=== PATIENT | male | born 1955 | race African-American/Black ===

== ENCOUNTER 2021-12-11 22:50 | Inpatient (IN) | payer MEDICARE, OTHER ==
[~2021-12-11] VITALS: Ht 175.3 cm; Wt 86.2 kg
--- NOTE | 2021-12-11 23:01 | NUR ---
RT CALLED FOR BREATHING TX
--- NOTE | 2021-12-11 23:02 | NUR ---
[id number] FROM HOME FOR MED REFILL FOR BREATHING NEBULIZER. PT A/OX4. TOLERATING R/A AT 98% WITH SOB. AMBULATORY WITH STEADY GAIT WITH WALKER. CONNECTED PT TO POX AND MONITOR. Addendum: 12/11/21 at 2330 by CYNDY [email or web address] FROM HOME FOR MED REFILL FOR BREATHING NEBULIZER. PT A/OX4. TOLERATING R/A AT 90% WITH SOB. AMBULATORY WITH STEADY GAIT WITH WALKER. CONNECTED PT TO POX AND MONITOR.
[2021-12-11] MEDS ORDERED: hydrALAZINE HCL IV 20 MG VIAL ONE (23:07)
[2021-12-11] MEDS ORDERED: methylPREDNISolone SOD SUCC 125 MG/2ML VIAL ONE (23:08)
[2021-12-11] MEDS ORDERED: ALBUTEROL FS 2.5 MG/3 ML VIAL.NEB ONE (23:11)
--- NOTE | 2021-12-11 23:15 | NUR ---
RT AT PT'S BEDSIDE FOR BRAETHING TX
--- NOTE | 2021-12-11 23:20 | NUR ---
RAC #18G S/L BLOOD COLLECTED AND GIVEN TO LAB
--- NOTE | 2021-12-11 23:26 | NUR ---
CHIEF SECURITY OFFICER AT PT'S BEDSIDE
[2021-12-11] MEDS ORDERED: ALBUTEROL FS 2.5 MG/0.5 ML VIAL.NEB NEB ONE (23:30)
[2021-12-11] MEDS ORDERED: hydrALAZINE HCL IV 20 MG VIAL IV ONE (23:30)
[2021-12-11] MEDS ORDERED: methylPREDNISolone SOD SUCC 125 MG/2ML VIAL IV ONE (23:30)
--- NOTE | 2021-12-11 23:30 | NUR ---
S/P BREATHING TX SATTING 95% ON R/A
[2021-12-11 23:32] LABS: BASOPHILS # (AUTO) 0.1 K/uL (0.0-0.2); BASOPHILS % (AUTO) 1.8 % (0.0-2.0); EOSINOPHILS % (AUTO) 4.7 % (0.0-6.0); HEMATOCRIT 47 % (39-51); HEMOGLOBIN 15.6 g/dL (13.5-17.5); LYMPHOCYTES # (AUTO) 1.8 K/uL (0.8-4.8); LYMPHOCYTES % (AUTO) 32.2 % (20.0-44.0); MEAN CORPUSCULAR HGB CONC 34 g/dl (31.0-36.0); MEAN CORPUSCULAR VOLUME 91 fL (80-96); MONOCYTES # (AUTO) 0.5 K/uL (0.1-1.30); MONOCYTES % (AUTO) 8.8 % (2.0-12.0); NEUTROPHILS # (AUTO) 2.9 K/uL (1.8-8.9); NEUTROPHILS % (AUTO) 52.5 % (43.0-81.0); PLATELET COUNT (AUTO) 150 K/uL (150-450); WHITE BLOOD COUNT (AUTO) 5.4 K/uL (4.3-11.0)
[2021-12-11 23:38] LABS: CALCIUM, SERUM 8.4 mg/dL (8.5-10.1); CREATININE 1.2 mg/dL (0.6-1.3); POTASSIUM 3.4 mmol/L (3.5-5.1)
--- NOTE | 2021-12-11 23:40 | NUR ---
PT REFUSED CT HEAD. MADE AWARE.
[2021-12-11 23:44] LABS: ALBUMIN 3.4 g/dL (3.4-5.0); BILIRUBIN,DIRECT 0.2 mg/dL (0.0-0.2); BILIRUBIN,TOTAL 0.6 mg/dL (0.2-1.0); TOTAL PROTEIN, SERUM 7.6 g/dL (6.4-8.2)
--- NOTE | 2021-12-11 23:55 | NUR ---
COVID ANTIGEN SWAB COLLECTED AND SENT TO LAB
[2021-12-12] MEDS ORDERED: ASPIRIN 325 MG TABLET PO ONE
--- NOTE | 2021-12-12 | NUR ---
CALLED LAB TO F/U WITH CBC RESULTS
[2021-12-12] MEDS ORDERED: LEVOFLOXACIN 750 MG /D5W 150ML 150 ML IV ONE ×2 (00:02)
[2021-12-12] MEDS ORDERED: ASPIRIN 325 MG TABLET ONE (00:02)
--- NOTE | 2021-12-12 00:03 | NUR ---
PAGED EPIC BUTTONHOLER
--- NOTE | 2021-12-12 00:09 | NUR ---
MATERIAL SPREADER AT PT'S BEDSIDE FOR BLOOD CX DRAW
--- NOTE | 2021-12-12 00:12 | NUR ---
OFFERED PT SNACKS; PT TOLERATING WELL
--- NOTE | 2021-12-12 01:10 | NUR ---
ASSIGNED TO 308-2
--- NOTE | 2021-12-12 01:25 | NUR ---
REPORT GIVEN TO YENI CortezW RN FOR SEBASTIEN
[2021-12-12 02:00] VITALS: BP 144/77
[2021-12-12] MEDS ORDERED: hydrALAZINE HCL IV 20 MG VIAL IV PRN (02:00)
[2021-12-12] MEDS ORDERED: MAGNESIUM HYDROXIDE 30 ML UDC PO PRN (02:00)
[2021-12-12] MEDS ORDERED: MAG HYDROX/AL HYDROX/SIMETH 30 ML UDC PO PRN (02:00)
[2021-12-12] MEDS ORDERED: Z GUARD REMEDY 4 OZ OINT TP PRN (02:00)
[2021-12-12] MEDS ORDERED: ONDANSETRON HCL/PF 4 MG/2 ML VIAL IVP PRN (02:00)
[2021-12-12] MEDS ORDERED: ENOXAPARIN SODIUM 40 MG/0.4 ML DISP.SYRIN SQ SCH (02:00)
[2021-12-12] MEDS ORDERED: ZOLPIDEM TARTRATE 5 MG TABLET PO PRN (02:00)
[2021-12-12] MEDS ORDERED: ACETAMINOPHEN 325 MG TABLET PO PRN (02:00)
--- NOTE | 2021-12-12 02:19 | NUR ---
PT TRANSFERRING TO 3W 308-2 VIA ACLS PROTOCOL. VSS. ALL BELONGINGS WITH PT.
[2021-12-12 02:30] VITALS: BP 144/92
[2021-12-12] MEDS ORDERED: ALBUTEROL FS 2.5 MG/3 ML VIAL.NEB NEB SCH (03:30)
[2021-12-12 04:00] VITALS: BP 144/86
[2021-12-12] MEDS ORDERED: methylPREDNISolone SOD SUCC 125 MG/2ML VIAL IV SCH (05:00)
--- NOTE | 2021-12-12 05:08 | NUR ---
CLOSING NOTES: ALERT AND ORIENTATED X4 CONCERNED ABOUT WHAT MEDICATIONS ARE BEING GIVEN TO HIM AND WILL QUESTION THE NURSE IN DEPTH LUNGS VIA AUSCULTATION CLEAR ROOM AIR SATS 97% FIRST TROP.105 2ND TROP 83 NO SOB NO CHESTPAIN DOESN'T REMEMBER THE MEDICATION HE TAKES AT HOME OWN WALKER AT THE BEDSIDE
[2021-12-12] MEDS ORDERED: AMLO-213 PO (06:11)
[2021-12-12] MEDS ORDERED: ATEN25TA PO (06:11)
[2021-12-12] MEDS ORDERED: hydrALAZINE HCL 50 MG TABLET PO SCH (07:00)
[2021-12-12] MEDS ORDERED: POTASSIUM CHLORIDE 20 MEQ TAB.PRT.SR PO SCH (07:00)
--- NOTE | 2021-12-12 07:15 | NUR ---
ms rn received on bed, awake,alert,oriented x4,not in any form of distress, respirations even and unlabored,no sob noted,lungs are clear,abdomen soft,positive bowel sounds,denies pain at this time, nsr on monitor, being seen by dr. celis at this time, w/ orders made, will carry out,all needs attended.
[2021-12-12] MEDS ORDERED: PANTOPRAZOLE 40 MG TABLET.DR PO SCH (07:30)
[2021-12-12] MEDS ORDERED: IPRATROPIUM NEB FS 0.5 MG/2.5 ML AMPUL.NEB NEB PRN (07:35)
--- NOTE | 2021-12-12 07:56 | NUR ---
ms rn patient is becoming anxious to go home, wants to do ama,but refused,to sign ama paper, charge nurse is aware.
--- NOTE | 2021-12-12 07:58 | NUR ---
ms rn explain to him the risk of going ama,but still went ama, patient went out,no distress noted.
[2021-12-12] MEDS ORDERED: NITROGLYCERIN 30 GM TUBE TP SCH (08:00)
[2021-12-12] MEDS ORDERED: ASPIRIN 81 MG TAB.CHEW PO SCH (09:00)
[2021-12-12] MEDS ORDERED: ATORVASTATIN 10 MG TABLET PO SCH (09:00)
[2021-12-13] MEDS ORDERED: LEVOFLOXACIN 500 MG /D5W 100ML 500 MG in PREMIX 1 EA IV SCH ×2
== END 2021-12-12 08:00 | disposition left against medical advice (07) | DRG 280 ==
LOC: ER 22:56 → TELE 12-12 01:15
PROVIDERS: ADMIT Nurse Practitioner Acute Care; ATTEND Nurse Practitioner Acute Care
DX: I16.0 Hypertensive urgency (principal); J15.9 Unspecified bacterial pneumonia; I21.A1 Myocardial infarction type 2; E44.0 Moderate protein-calorie malnutrition; J44.0 Chronic obstructive pulmonary disease with (acute) lower respiratory infection; J44.1 Chronic obstructive pulmonary disease with (acute) exacerbation; I10 Essential (primary) hypertension; E87.6 Hypokalemia; Z91.14 Patient's other noncompliance with medication regimen; Z53.29 Procedure and treatment not carried out because of patient's decision for other reasons; Z91.19 Patient's noncompliance with other medical treatment and regimen; E86.0 Dehydration; R79.89 Other specified abnormal findings of blood chemistry; F17.290 Nicotine dependence, other tobacco product, uncomplicated
CPT/HCPCS: 36415; 71045-TC; 80048-TC; 80076-TC; 83605-TC; 84484-TC; 85025-TC; 87040-TC; 87081-TC; A4216; C9803; G0378; J0360; J1650; J1956; J2930

== ENCOUNTER 2022-09-06 15:10 | Inpatient (IN) | payer BC, OTHER ==
[~2022-09-06] VITALS: Ht 177.8 cm; Wt 90.3 kg
[~2022-09-06 15:10] MED LIST: AMLO-213 PO; ATEN25TA PO
[2022-09-06] MEDS ORDERED: DILTIAZEM HCL 25 MG IV IVP ONE (15:30)
[2022-09-06] MEDS ORDERED: DILTIAZEM HCL 25 MG IV ONE (15:33)
[2022-09-06] MEDS ORDERED: CARV12.52 PO (15:38)
[2022-09-06] MEDS ORDERED: HYDR25TA4 PO (15:38)
[2022-09-06] MEDS ORDERED: LISI20TA30 PO (15:38)
[2022-09-06] MEDS ORDERED: HYDR-3980 PO (15:38)
[2022-09-06] MEDS ORDERED: BENA20TA9 PO (15:38)
[2022-09-06] MEDS ORDERED: AMLO1CAP PO (15:47)
[2022-09-06 16:33] LABS: EOSINOPHILS % (AUTO) 3.7 % (0.0-6.0); MONOCYTES # (AUTO) 0.5 K/uL (0.1-1.30); NEUTROPHILS # (AUTO) 1.6 K/uL (1.8-8.9); RED BLOOD CELL COUNT(AUTO) 4.51 MIL/uL (4.5-6.0)
[2022-09-06 16:43] LABS: BASOPHILS % (AUTO) 0.6 % (0.0-2.0); HEMATOCRIT 43 % (39-51); LYMPHOCYTES # (AUTO) 1.9 K/uL (0.8-4.8); LYMPHOCYTES % (AUTO) 44.8 % (20.0-44.0); MEAN CORPUSCULAR HGB CONC 33 g/dl (31.0-36.0); MEAN CORPUSCULAR VOLUME 95 fL (80-96); MONOCYTES % (AUTO) 11.4 % (2.0-12.0); NEUTROPHILS % (AUTO) 39.5 % (43.0-81.0); PLATELET COUNT (AUTO) 195 K/uL (150-450); WHITE BLOOD COUNT (AUTO) 4.1 K/uL (4.3-11.0)
[2022-09-06 16:52] LABS: ALANINE AMINOTRANSFERASE 43 U/L (12-78); ALBUMIN 3.4 g/dL (3.4-5.0); ALKALINE PHOSPHATASE 107 U/L (46-116); ASPARTATE AMINOTRANSFERASE 53 U/L (15-37); BILIRUBIN,DIRECT 0.4 mg/dL (0.0-0.2); CALCIUM, SERUM 8.8 mg/dL (8.5-10.1); CARBON DIOXIDE 23 mmol/L (21-32); CHLORIDE 109 mmol/L (98-107); CREATININE 1.1 mg/dL (0.6-1.3); GLUCOSE 120 mg/dL (74-106); POTASSIUM 3.6 mmol/L (3.5-5.1); SODIUM SERUM 143 mmol/L (136-145); TOTAL PROTEIN, SERUM 7.2 g/dL (6.4-8.2); UREA NITROGEN, BLOOD 22 mg/dL (7-18)
[2022-09-06] MEDS ORDERED: AMIODARONE 150 MG in IV D5W 100 ML IV ONE (18:30)
[2022-09-06] MEDS ORDERED: ONDANSETRON HCL/PF 4 MG/2 ML VIAL IVP PRN (18:30)
[2022-09-06] MEDS ORDERED: AMIODARONE 450 MG in IV D5W 250 ML IV ONE (18:30)
[2022-09-06] MEDS ORDERED: NITROGLYCERIN 0.4 MG/TAB BOTTLE SL PRN (18:30)
[2022-09-06] MEDS ORDERED: ENOXAPARIN SODIUM 80 MG/0.8 ML DISP.SYRIN SQ ONE ×2 (18:30→19:16)
[2022-09-06] MEDS ORDERED: AMIODARONE 900 MG in IV D5W 482 ML IV PRN (20:30)
[2022-09-06] MEDS ORDERED: ENOXAPARIN SODIUM 100 MG/ML DISP.SYRIN SQ SCH (21:00)
[2022-09-06 21:07] VITALS: BP 147/103
[2022-09-06] MEDS: MORPHINE SULFATE INJ 2 MG/ML DISP.SYRIN IV PRN ×2 (21:19→22:08)
[2022-09-07] VITALS: BP 145/98
[2022-09-07] MEDS: ALPRAZOLAM 0.25 MG TABLET PO PRN
[2022-09-07] MEDS ORDERED: IPRATROPIUM NEB FS 0.5 MG/2.5 ML AMPUL.NEB NEB PRN (01:00)
[2022-09-07] MEDS ORDERED: ALBUTEROL FS 2.5 MG/3 ML VIAL.NEB NEB PRN (01:00)
[2022-09-07] MEDS ORDERED: AMIODARONE 150 MG/3 ML VIAL IV ONE (01:17)
[2022-09-07] MEDS: AMIODARONE 450 MG in IV D5W 241 ML IV PRN ×2 (01:32→15:06)
[2022-09-07] MEDS: HYDROCODONE/APAP 10/325MG TABLET PO PRN (03:07)
[2022-09-07 04:00] VITALS: BP 148/100
[2022-09-07] MEDS ORDERED: ENOXAPARIN SODIUM 100 MG/ML DISP.SYRIN SQ SCH (07:00)
[2022-09-07 08:00] VITALS: BP 148/111
[2022-09-07] MEDS: ASPIRIN 81 MG TAB.CHEW PO SCH (08:16)
[2022-09-07] MEDS: CARVEDILOL 12.5 MG TABLET PO SCH ×2 (08:16→16:49)
[2022-09-07] MEDS: AMLODIPINE BESYLATE 10 MG TABLET PO SCH (08:17)
[2022-09-07] MEDS: ENOXAPARIN SODIUM 100 MG/ML DISP.SYRIN SQ SCH ×2 (08:18→20:54)
[2022-09-07] MEDS ORDERED: HYDROCHLOROTHIAZIDE 25 MG TABLET PO SCH (09:00)
[2022-09-07] MEDS ORDERED: BENAZEPRIL HCL 20 MG TABLET PO SCH (09:00)
[2022-09-07 11:01] LABS: CALCIUM, SERUM 8.9 mg/dL (8.5-10.1); CREATININE 2.4 mg/dL (0.6-1.3); MAGNESIUM 2.5 mg/dL (1.8-2.4); PHOSPHORUS 7.7 mg/dL (2.5-4.9); POTASSIUM 4.4 mmol/L (3.5-5.1)
[2022-09-07] MEDS: ATORVASTATIN 40 MG TABLET PO SCH (11:12)
[2022-09-07 11:24] LABS: THYROID STIMULATING HORMONE 0.754 uIU/mL (0.358-3.74)
[2022-09-07 11:26] LABS: BASOPHILS % (AUTO) 0.3 % (0.0-2.0); HEMATOCRIT 43 % (39-51); HEMOGLOBIN 14.2 g/dL (13.5-17.5); LYMPHOCYTES # (AUTO) 0.8 K/uL (0.8-4.8); MEAN CORPUSCULAR HGB CONC 33 g/dl (31.0-36.0); MEAN CORPUSCULAR VOLUME 95 fL (80-96); MONOCYTES # (AUTO) 0.6 K/uL (0.1-1.30); MONOCYTES % (AUTO) 7.5 % (2.0-12.0); NEUTROPHILS # (AUTO) 6.5 K/uL (1.8-8.9); NEUTROPHILS % (AUTO) 82.2 % (43.0-81.0); PLATELET COUNT (AUTO) 186 K/uL (150-450); RED BLOOD CELL COUNT(AUTO) 4.57 MIL/uL (4.5-6.0); WHITE BLOOD COUNT (AUTO) 7.9 K/uL (4.3-11.0)
[2022-09-07 12:00] VITALS: BP 122/90
[2022-09-07 16:00] VITALS: BP 124/87
[2022-09-07 20:00] VITALS: BP 115/73
[2022-09-07] MEDS: AMIODARONE HCL 200 MG TABLET PO SCH (20:52)
[2022-09-08 04:00] VITALS: BP 101/68
[2022-09-08] MEDS: ALPRAZOLAM 0.25 MG TABLET PO PRN (04:38)
[2022-09-08] MEDS: HYDROCODONE/APAP 10/325MG TABLET PO PRN (07:38)
[2022-09-08 08:00] VITALS: BP 123/82
[2022-09-08] MEDS: ENOXAPARIN SODIUM 100 MG/ML DISP.SYRIN SQ SCH ×3 (08:00→09:00)
[2022-09-08] MEDS: IV NS 0.9% 1,000 ML IV PRN (08:08)
[2022-09-08] MEDS: ASPIRIN 81 MG TAB.CHEW PO SCH (08:18)
[2022-09-08] MEDS: ATORVASTATIN 40 MG TABLET PO SCH (08:18)
[2022-09-08] MEDS: AMLODIPINE BESYLATE 10 MG TABLET PO SCH (08:19)
[2022-09-08] MEDS: AMIODARONE HCL 200 MG TABLET PO SCH (08:20)
[2022-09-08] MEDS: CARVEDILOL 12.5 MG TABLET PO SCH ×2 (08:21→16:20)
[2022-09-08 11:15] LABS: BILIRUBIN,URINE 1+ (NEGATIVE); COLOR,URINE YELLOW (YELLOW); LEUKOCYTE ESTERASE ,URINE NEGATIVE (NEGATIVE); NITRITE, URINE NEGATIVE (NEGATIVE); PH,URINE 5.5 (5.0-8.0); PROTEIN,URINE 1+ mg/dl (NEGATIVE); UGLUCOSE NEGATIVE (NEGATIVE)
[2022-09-08 11:55] LABS: BACTERIA,URINE Rare /HPF (None Seen); SQUAMOUS EPITHELIAL CELL,UR Rare /HPF (None Seen)
[2022-09-08 11:56] LABS: HYALINE CASTS, URINE Moderate /LPF (None Seen)
[2022-09-08 12:00] VITALS: BP 109/74
[2022-09-08 16:00] VITALS: BP 118/77
[2022-09-09] MEDS: AMIODARONE HCL 200 MG TABLET PO SCH ×2 (01:39→08:08)
[2022-09-09 02:00] VITALS: BP 130/92
[2022-09-09 04:00] VITALS: BP 152/96
[2022-09-09] MEDS: IV NS 0.9% 1,000 ML IV PRN (05:52)
[2022-09-09 06:21] LABS: BASOPHILS # (AUTO) 0.2 K/uL (0.0-0.2); BASOPHILS % (AUTO) 4.4 % (0.0-2.0); EOSINOPHILS % (AUTO) 1.2 % (0.0-6.0); HEMATOCRIT 43 % (39-51); HEMOGLOBIN 14.3 g/dL (13.5-17.5); LYMPHOCYTES # (AUTO) 1.7 K/uL (0.8-4.8); LYMPHOCYTES % (AUTO) 35.6 % (20.0-44.0); MEAN CORPUSCULAR HGB CONC 33 g/dl (31.0-36.0); MEAN CORPUSCULAR VOLUME 93 fL (80-96); MONOCYTES # (AUTO) 0.4 K/uL (0.1-1.30); MONOCYTES % (AUTO) 8.6 % (2.0-12.0); NEUTROPHILS # (AUTO) 2.4 K/uL (1.8-8.9); NEUTROPHILS % (AUTO) 50.2 % (43.0-81.0); PLATELET COUNT (AUTO) 153 K/uL (150-450); RED BLOOD CELL COUNT(AUTO) 4.65 MIL/uL (4.5-6.0); WHITE BLOOD COUNT (AUTO) 4.8 K/uL (4.3-11.0)
[2022-09-09 06:51] LABS: ALBUMIN 3.3 g/dL (3.4-5.0); BILIRUBIN,TOTAL 1.6 mg/dL (0.2-1.0); CALCIUM, SERUM 7.9 mg/dL (8.5-10.1); MAGNESIUM 2.5 mg/dL (1.8-2.4); PHOSPHORUS 3.7 mg/dL (2.5-4.9); POTASSIUM 3.4 mmol/L (3.5-5.1); TOTAL PROTEIN, SERUM 6.7 g/dL (6.4-8.2)
[2022-09-09 08:00] VITALS: BP 154/92
[2022-09-09] MEDS: CARVEDILOL 12.5 MG TABLET PO SCH (08:07)
[2022-09-09] MEDS: ASPIRIN 81 MG TAB.CHEW PO SCH (08:07)
[2022-09-09] MEDS: ATORVASTATIN 40 MG TABLET PO SCH (08:08)
[2022-09-09] MEDS: AMLODIPINE BESYLATE 10 MG TABLET PO SCH (08:09)
[2022-09-09] MEDS: ENOXAPARIN SODIUM 100 MG/ML DISP.SYRIN SQ SCH (08:11)
[2022-09-09] MEDS ORDERED: POTASSIUM CHLORIDE 10 MEQ TABLET.SA PO ONE (09:00)
[2022-09-09 12:00] VITALS: BP 129/80
== END 2022-09-09 16:06 | disposition left against medical advice (07) | DRG 280 ==
LOC: ER 15:34 → TELE1 20:06 → TELE-TD 20:53 → TELE1 09-08 16:01
PROVIDERS: ADMIT Internal Medicine; ATTEND Internal Medicine
DX: I21.4 Non-ST elevation (NSTEMI) myocardial infarction (principal); I50.43 Acute on chronic combined systolic (congestive) and diastolic (congestive) heart failure; N17.0 Acute kidney failure with tubular necrosis; D68.59 Other primary thrombophilia; I11.0 Hypertensive heart disease with heart failure; I25.10 Atherosclerotic heart disease of native coronary artery without angina pectoris; I48.91 Unspecified atrial fibrillation; Z20.822 Contact with and (suspected) exposure to COVID-19; Z88.0 Allergy status to penicillin; Z79.899 Other long term (current) drug therapy; J44.9 Chronic obstructive pulmonary disease, unspecified; E83.39 Other disorders of phosphorus metabolism; Z91.148 Patient's other noncompliance with medication regimen for other reason
CPT/HCPCS: 36415; 71045-TC; 76700-TC; 76770-TC; 80048-TC; 80053-TC; 80061-TC; 80076-TC; 81001; 83735-TC; 84100-TC; 84439-TC; 84443-TC; 84484-TC; 85025-TC; 85730-TC; 87081-TC; 87086-TC; 93307-TC; 94799-TC; A4223; C9803; G0378; J0282; J1650; J2270; J3490; J7030; J7060

== ENCOUNTER 2023-08-23 06:48 | Inpatient (IN) | payer MEDICARE, OTHER ==
[~2023-08-23] VITALS: Ht 177.8 cm; Wt 87.5 kg
[~2023-08-23 06:48] MED LIST changes: -AMLO-213 PO; +AMLO1CAP PO; -ATEN25TA PO; +CARV12.52 PO; +HYDR-3980 PO; +HYDR25TA4 PO
[2023-08-23 07:38] LABS: BASOPHILS # (AUTO) 0.1 K/uL (0.0-0.2); BASOPHILS % (AUTO) 1.4 % (0.0-2.0); EOSINOPHILS # (AUTO) 0.1 K/uL (0.0-0.7); EOSINOPHILS % (AUTO) 1.9 % (0.0-6.0); HEMATOCRIT 37 % (39-51); HEMOGLOBIN 11.6 g/dL (13.5-17.5); LYMPHOCYTES # (AUTO) 1.5 K/uL (0.8-4.8); LYMPHOCYTES % (AUTO) 32.5 % (20.0-44.0); MEAN CORPUSCULAR HEMOGLOBIN 26 PG (26.0-33.0); MEAN CORPUSCULAR HGB CONC 32 g/dl (31.0-36.0); MEAN CORPUSCULAR VOLUME 83 fL (80-96); MONOCYTES # (AUTO) 0.5 K/uL (0.1-1.30); MONOCYTES % (AUTO) 11.3 % (2.0-12.0); NEUTROPHILS # (AUTO) 2.5 K/uL (1.8-8.9); NEUTROPHILS % (AUTO) 52.9 % (43.0-81.0); PLATELET COUNT (AUTO) 184 K/uL (150-450); RED BLOOD CELL COUNT(AUTO) 4.43 MIL/uL (4.5-6.0); RED CELL DISTRIBUTION WIDTH 23.9 % (11.5-15.0); WHITE BLOOD COUNT (AUTO) 4.7 K/uL (4.3-11.0)
[2023-08-23 07:44] LABS: CALCIUM, SERUM 8.3 mg/dL (8.5-10.1); CREATININE 1.9 mg/dL (0.6-1.3); POTASSIUM 5.1 mmol/L (3.5-5.1)
[2023-08-23 07:50] LABS: ALBUMIN 2.6 g/dL (3.4-5.0); BILIRUBIN,DIRECT 0.8 mg/dL (0.0-0.2); BILIRUBIN,TOTAL 1.2 mg/dL (0.2-1.0); TOTAL PROTEIN, SERUM 7.3 g/dL (6.4-8.2)
[2023-08-23 09:14] LABS: NT-PRO BNP 21529 pg/mL (0-125)
[2023-08-23] MEDS ORDERED: FUROSEMIDE 40 MG/4 ML VIAL ONE (09:33)
[2023-08-23] MEDS: FUROSEMIDE 40 MG/4 ML VIAL IV ONE (09:34)
[2023-08-23] MEDS ORDERED: MAG HYDROX/AL HYDROX/SIMETH 30 ML UDC PO PRN (11:30)
[2023-08-23] MEDS ORDERED: Z GUARD REMEDY 4 OZ OINT TP PRN (11:30)
[2023-08-23] MEDS ORDERED: ONDANSETRON HCL/PF 4 MG/2 ML VIAL IVP PRN (11:30)
[2023-08-23] MEDS ORDERED: MAGNESIUM HYDROXIDE 30 ML UDC PO PRN (11:30)
[2023-08-23 12:00] VITALS: BP 140/106; TEMP 99.9; O2SAT 99
[2023-08-23] MEDS: PANTOPRAZOLE 40 MG TABLET.DR PO SCH (13:00)
[2023-08-23] MEDS ORDERED: FOLI0.4T6 PO (13:17)
[2023-08-23] MEDS ORDERED: FURO-145 PO (13:17)
[2023-08-23] MEDS ORDERED: APIX5TAB PO (13:17)
[2023-08-23] MEDS ORDERED: METO-357 PO (13:17)
[2023-08-23] MEDS ORDERED: PANT40TA2 PO (13:17)
[2023-08-23] MEDS ORDERED: AMIO200T5 PO (13:17)
[2023-08-23] MEDS: METOPROLOL SUCCINATE 50 MG TAB.SR.24H PO SCH (13:30)
[2023-08-23] MEDS: FUROSEMIDE 100 MG/10 ML VIAL IV SCH (13:30)
[2023-08-23 16:00] VITALS: BP 150/98; TEMP 97.7; O2SAT 99
[2023-08-23] MEDS: APIXABAN 5 MG TABLET PO SCH (16:12)
[2023-08-23] MEDS ORDERED: APIXABAN 5 MG TABLET PO SCH (17:00)
[2023-08-23 20:00] VITALS: BP 148/91; TEMP 98.1; O2SAT 96
[2023-08-23] MEDS ORDERED: HEPARIN SODIUM, PORCINE 5000 UNITS/1 ML VIAL SQ SCH (21:00)
[2023-08-23] MEDS ORDERED: FUROSEMIDE 40 MG/4 ML VIAL IV SCH (21:00)
[2023-08-24] VITALS (7 sets, daily range): BP systolic 127–158; BP diastolic 76–104; TEMP 98–98.2; O2SAT 96–100
[2023-08-24 07:23] LABS: BASOPHILS # (AUTO) 0.1 K/uL (0.0-0.2); BASOPHILS % (AUTO) 1.3 % (0.0-2.0); EOSINOPHILS # (AUTO) 0.1 K/uL (0.0-0.7); EOSINOPHILS % (AUTO) 3.3 % (0.0-6.0); HEMATOCRIT 36 % (39-51); LYMPHOCYTES # (AUTO) 0.9 K/uL (0.8-4.8); LYMPHOCYTES % (AUTO) 24.3 % (20.0-44.0); MEAN CORPUSCULAR HEMOGLOBIN 27 PG (26.0-33.0); MEAN CORPUSCULAR HGB CONC 31 g/dl (31.0-36.0); MEAN CORPUSCULAR VOLUME 86 fL (80-96); MONOCYTES # (AUTO) 0.5 K/uL (0.1-1.30); MONOCYTES % (AUTO) 12.9 % (2.0-12.0); NEUTROPHILS # (AUTO) 2.3 K/uL (1.8-8.9); NEUTROPHILS % (AUTO) 58.2 % (43.0-81.0); PLATELET COUNT (AUTO) 161 K/uL (150-450); RED BLOOD CELL COUNT(AUTO) 4.11 MIL/uL (4.5-6.0); RED CELL DISTRIBUTION WIDTH 23.8 % (11.5-15.0); WHITE BLOOD COUNT (AUTO) 3.9 K/uL (4.3-11.0)
[2023-08-24 07:42] LABS: ALBUMIN 2.1 g/dL (3.4-5.0); BILIRUBIN,TOTAL 0.9 mg/dL (0.2-1.0); CALCIUM, SERUM 7.8 mg/dL (8.5-10.1); CREATININE 1.9 mg/dL (0.6-1.3); MAGNESIUM 1.8 mg/dL (1.8-2.4); PHOSPHORUS 3.8 mg/dL (2.5-4.9); POTASSIUM 4.7 mmol/L (3.5-5.1); TOTAL PROTEIN, SERUM 6.4 g/dL (6.4-8.2)
[2023-08-24 07:43] LABS: THYROID STIMULATING HORMONE 4.201 uIU/mL (0.358-3.74)
[2023-08-24 07:52] LABS: BILIRUBIN,DIRECT 0.6 mg/dL (0.0-0.2)
[2023-08-24] MEDS: FOLIC ACID 1 MG TABLET PO SCH (08:49)
[2023-08-24] MEDS: FUROSEMIDE 100 MG/10 ML VIAL IV SCH (08:59)
[2023-08-24] MEDS ORDERED: PANTOPRAZOLE 40 MG VIAL IV SCH (09:00)
[2023-08-24] MEDS: hydrALAZINE HCL 50 MG TABLET PO SCH (09:00)
[2023-08-24] MEDS ORDERED: AMIODARONE HCL 200 MG TABLET PO SCH (09:00)
[2023-08-24] MEDS: MINERAL OIL/PETROL OINT 396 GM JAR TP SCH (09:00)
[2023-08-24] MEDS: CLOTRIMAZOLE 1% 15 GM TUBE TP SCH (09:15)
[2023-08-24] MEDS: ACETAMINOPHEN 325 MG TABLET PO PRN (19:49)
[2023-08-25] VITALS (7 sets, daily range): BP systolic 120–137; BP diastolic 46–93; TEMP 98.2–98.8; O2SAT 93–98
[2023-08-25 07:20] LABS: BASOPHILS % (AUTO) 0.9 % (0.0-2.0); EOSINOPHILS # (AUTO) 0.1 K/uL (0.0-0.7); EOSINOPHILS % (AUTO) 1.9 % (0.0-6.0); HEMATOCRIT 33 % (39-51); HEMOGLOBIN 10.5 g/dL (13.5-17.5); LYMPHOCYTES # (AUTO) 0.9 K/uL (0.8-4.8); LYMPHOCYTES % (AUTO) 24.1 % (20.0-44.0); MEAN CORPUSCULAR HEMOGLOBIN 27 PG (26.0-33.0); MEAN CORPUSCULAR HGB CONC 32 g/dl (31.0-36.0); MEAN CORPUSCULAR VOLUME 83 fL (80-96); MONOCYTES # (AUTO) 0.4 K/uL (0.1-1.30); MONOCYTES % (AUTO) 9.9 % (2.0-12.0); NEUTROPHILS # (AUTO) 2.3 K/uL (1.8-8.9); NEUTROPHILS % (AUTO) 63.2 % (43.0-81.0); PLATELET COUNT (AUTO) 173 K/uL (150-450); RED BLOOD CELL COUNT(AUTO) 3.92 MIL/uL (4.5-6.0); RED CELL DISTRIBUTION WIDTH 23.3 % (11.5-15.0); WHITE BLOOD COUNT (AUTO) 3.7 K/uL (4.3-11.0)
[2023-08-25 07:37] LABS: ALBUMIN 1.9 g/dL (3.4-5.0); BILIRUBIN,TOTAL 0.9 mg/dL (0.2-1.0); CALCIUM, SERUM 7.9 mg/dL (8.5-10.1); CREATININE 1.8 mg/dL (0.6-1.3); MAGNESIUM 1.6 mg/dL (1.8-2.4); PHOSPHORUS 3.4 mg/dL (2.5-4.9); POTASSIUM 3.3 mmol/L (3.5-5.1); TOTAL PROTEIN, SERUM 5.9 g/dL (6.4-8.2)
[2023-08-25] MEDS: risperiDONE 1 MG TABLET PO SCH (09:34)
[2023-08-25] MEDS: DIVALPROEX SODIUM 125 MG CAP.SPRINK PO SCH (09:35)
[2023-08-25] MEDS: SPIRONOLACTONE 25 MG TABLET PO SCH (09:45)
[2023-08-25] MEDS: MAGNESIUM OXIDE 400 MG TABLET PO ONE (11:20)
[2023-08-25] MEDS: POTASSIUM CHLORIDE 20 MEQ TAB.PRT.SR PO SCH (11:20)
[2023-08-25] MEDS: CLOTRIMAZOLE 1% 15 GM TUBE TP SCH (12:36)
[2023-08-25] MEDS: DONEPEZIL 5 MG TABLET PO SCH (21:10)
[2023-08-25] MEDS: ZOLPIDEM TARTRATE 5 MG TABLET PO PRN (21:11)
[2023-08-26] MEDS: METOPROLOL TARTRATE 50 MG TABLET PO SCH (04:49)
[2023-08-26] MEDS ORDERED: METOPROLOL SUCCINATE 50 MG TAB.SR.24H PO SCH (05:00)
[2023-08-26 07:08] LABS: BASOPHILS % (AUTO) 0.6 % (0.0-2.0); EOSINOPHILS # (AUTO) 0.1 K/uL (0.0-0.7); EOSINOPHILS % (AUTO) 1.1 % (0.0-6.0); HEMATOCRIT 37 % (39-51); HEMOGLOBIN 11.4 g/dL (13.5-17.5); LYMPHOCYTES # (AUTO) 1.2 K/uL (0.8-4.8); LYMPHOCYTES % (AUTO) 22.8 % (20.0-44.0); MEAN CORPUSCULAR HEMOGLOBIN 26 PG (26.0-33.0); MEAN CORPUSCULAR HGB CONC 31 g/dl (31.0-36.0); MEAN CORPUSCULAR VOLUME 85 fL (80-96); MONOCYTES # (AUTO) 0.5 K/uL (0.1-1.30); MONOCYTES % (AUTO) 9.3 % (2.0-12.0); NEUTROPHILS # (AUTO) 3.6 K/uL (1.8-8.9); NEUTROPHILS % (AUTO) 66.2 % (43.0-81.0); PLATELET COUNT (AUTO) 194 K/uL (150-450); RED BLOOD CELL COUNT(AUTO) 4.31 MIL/uL (4.5-6.0); RED CELL DISTRIBUTION WIDTH 23.9 % (11.5-15.0); WHITE BLOOD COUNT (AUTO) 5.5 K/uL (4.3-11.0)
[2023-08-26 07:37] LABS: CALCIUM, SERUM 8.1 mg/dL (8.5-10.1); CREATININE 1.9 mg/dL (0.6-1.3); MAGNESIUM 1.9 mg/dL (1.8-2.4); PHOSPHORUS 3.3 mg/dL (2.5-4.9); POTASSIUM 3.4 mmol/L (3.5-5.1)
[2023-08-26] MEDS ORDERED: FUROSEMIDE 40 MG/4 ML VIAL IV SCH (09:00)
[2023-08-26] MEDS ORDERED: BISACODYL SUPP (10 MG) 10 MG/SUPP.RECT SUPP.RECT RC PRN (10:00)
[2023-08-26 10:07] VITALS: O2SAT 93
[2023-08-26] MEDS: FUROSEMIDE 100 MG/10 ML VIAL IV SCH (10:11)
[2023-08-26] MEDS: PANTOPRAZOLE 40 MG VIAL IV SCH (10:11)
[2023-08-26] MEDS: POTASSIUM CHLORIDE 20 MEQ TAB.PRT.SR PO SCH (10:11)
[2023-08-26 10:59] LABS: FERRITIN 116 ng/mL (8-388)
[2023-08-26 11:06] LABS: IRON, SERUM 29 ug/dl (50-175); TOTAL IRON BINDING CAPACITY 373 ug/dl (250-450)
[2023-08-26] MEDS: DOCUSATE SODIUM 100 MG CAPSULE PO SCH (16:57)
[2023-08-26 20:00] VITALS: BP 125/72; TEMP 98.6; O2SAT 100
[2023-08-26] MEDS: SENNOSIDES 8.6 MG TABLET PO SCH (22:14)
[2023-08-27] VITALS: BP 115/86; TEMP 98.4; O2SAT 99
[2023-08-27 04:00] VITALS: BP 130/82; TEMP 98.4; O2SAT 100
[2023-08-27 06:40] LABS: BASOPHILS % (AUTO) 1.4 % (0.0-2.0); EOSINOPHILS # (AUTO) 0.1 K/uL (0.0-0.7); EOSINOPHILS % (AUTO) 2.1 % (0.0-6.0); HEMATOCRIT 32 % (39-51); HEMOGLOBIN 10.1 g/dL (13.5-17.5); LYMPHOCYTES # (AUTO) 0.7 K/uL (0.8-4.8); LYMPHOCYTES % (AUTO) 20.7 % (20.0-44.0); MEAN CORPUSCULAR HEMOGLOBIN 26 PG (26.0-33.0); MEAN CORPUSCULAR HGB CONC 32 g/dl (31.0-36.0); MEAN CORPUSCULAR VOLUME 82 fL (80-96); MONOCYTES # (AUTO) 0.4 K/uL (0.1-1.30); MONOCYTES % (AUTO) 10.3 % (2.0-12.0); NEUTROPHILS # (AUTO) 2.3 K/uL (1.8-8.9); NEUTROPHILS % (AUTO) 65.5 % (43.0-81.0); PLATELET COUNT (AUTO) 158 K/uL (150-450); RED BLOOD CELL COUNT(AUTO) 3.83 MIL/uL (4.5-6.0); RED CELL DISTRIBUTION WIDTH 22.6 % (11.5-15.0); WHITE BLOOD COUNT (AUTO) 3.5 K/uL (4.3-11.0)
[2023-08-27 06:51] VITALS: O2SAT 98
[2023-08-27 07:09] LABS: ALBUMIN 2.1 g/dL (3.4-5.0); BILIRUBIN,TOTAL 0.8 mg/dL (0.2-1.0); CALCIUM, SERUM 7.9 mg/dL (8.5-10.1); MAGNESIUM 1.8 mg/dL (1.8-2.4); PHOSPHORUS 3.3 mg/dL (2.5-4.9); POTASSIUM 3.6 mmol/L (3.5-5.1); TOTAL PROTEIN, SERUM 6.3 g/dL (6.4-8.2)
[2023-08-27 08:00] VITALS: BP 116/71; TEMP 98.4; O2SAT 95
[2023-08-27] MEDS: PANTOPRAZOLE 40 MG TABLET.DR PO SCH (09:24)
[2023-08-27] MEDS: METOLAZONE 2.5 MG TABLET PO SCH (11:21)
[2023-08-27] MEDS: POTASSIUM CHLORIDE 20 MEQ TAB.PRT.SR PO SCH (11:22)
[2023-08-27] MEDS: FUROSEMIDE 100 MG/10 ML VIAL IV SCH (11:22)
[2023-08-27] MEDS: SOD FERRIC GLUC 125 MG in IV NS 0.9% 100 ML IV SCH (14:23)
[2023-08-27 15:10] LABS: *SPE A/G RATIO 0.6 (0.7-1.7); *SPE ALBUMIN 2.4 g/dL (2.9-4.4); *SPE ALPHA-1-GLOBULIN 0.4 g/dL (0.0-0.4); *SPE ALPHA-2-GLOBULIN 0.7 g/dL (0.4-1.0); *SPE BETA GLOBULIN 1.1 g/dL (0.7-1.3); *SPE GLOBULIN, TOTAL 3.9 g/dL (2.2-3.9); *SPE M-SPIKE Not Observed g/dL (Not Observed); *SPE PROTEIN TOTAL 6.3 g/dL (6.0-8.5); *SPEGAMMA GLOBULIN 1.8 g/dL (0.4-1.8)
[2023-08-27 16:00] VITALS: BP 123/90; TEMP 98.2; O2SAT 95
[2023-08-27 21:32] VITALS: BP 142/73; TEMP 100; O2SAT 94
[2023-08-28 07:00] VITALS: BP 137/85; TEMP 98.8; O2SAT 97
[2023-08-28 07:20] VITALS: O2SAT 97
[2023-08-28 07:21] LABS: ALBUMIN 2.1 g/dL (3.4-5.0); BILIRUBIN,TOTAL 0.7 mg/dL (0.2-1.0); CALCIUM, SERUM 8.1 mg/dL (8.5-10.1); CREATININE 1.9 mg/dL (0.6-1.3); MAGNESIUM 1.9 mg/dL (1.8-2.4); PHOSPHORUS 3.6 mg/dL (2.5-4.9); POTASSIUM 4.1 mmol/L (3.5-5.1); TOTAL PROTEIN, SERUM 6.4 g/dL (6.4-8.2)
[2023-08-28 07:22] LABS: BASOPHILS % (AUTO) 1.1 % (0.0-2.0); EOSINOPHILS # (AUTO) 0.1 K/uL (0.0-0.7); EOSINOPHILS % (AUTO) 2.8 % (0.0-6.0); HEMATOCRIT 33 % (39-51); HEMOGLOBIN 10.4 g/dL (13.5-17.5); LYMPHOCYTES # (AUTO) 1.3 K/uL (0.8-4.8); LYMPHOCYTES % (AUTO) 33.5 % (20.0-44.0); MEAN CORPUSCULAR HEMOGLOBIN 27 PG (26.0-33.0); MEAN CORPUSCULAR HGB CONC 32 g/dl (31.0-36.0); MEAN CORPUSCULAR VOLUME 85 fL (80-96); MONOCYTES # (AUTO) 0.5 K/uL (0.1-1.30); MONOCYTES % (AUTO) 12.6 % (2.0-12.0); NEUTROPHILS # (AUTO) 1.9 K/uL (1.8-8.9); PLATELET COUNT (AUTO) 150 K/uL (150-450); RED BLOOD CELL COUNT(AUTO) 3.87 MIL/uL (4.5-6.0); RED CELL DISTRIBUTION WIDTH 23.2 % (11.5-15.0); WHITE BLOOD COUNT (AUTO) 3.8 K/uL (4.3-11.0)
[2023-08-28] MEDS: BUMETANIDE INJ 16 MG in IV NS 0.9% 16 ML IV ONE (10:58)
[2023-08-28 16:00] VITALS: BP 145/90; TEMP 98.7; O2SAT 95
[2023-08-28 20:00] VITALS: BP_SYST 127; BP_SYST 150; BP_DIAS 104; BP_DIAS 64; TEMP 98.8; O2SAT 96
[2023-08-29] MEDS ORDERED: DoBUTamine 500 MG/250 ML PIGGYBACK IV ONE ×2 (07:30→08:00)
[2023-08-29 09:00] VITALS: BP 120/83; TEMP 97.9; O2SAT 100
[2023-08-29] MEDS: BUMETANIDE (1 MG) 1 MG TABLET PO SCH (09:30)
[2023-08-29] MEDS: DOBUTamine 500 MG in IV D5W 210 ML IV PRN (10:26)
[2023-08-29 12:00] VITALS: BP 128/93; TEMP 98.1; O2SAT 100
[2023-08-29 16:00] VITALS: BP 144/95; TEMP 98.2; O2SAT 100
[2023-08-29 20:00] VITALS: BP 100/67; TEMP 98; O2SAT 100
[2023-08-30] VITALS: BP 136/87; TEMP 98; O2SAT 100
[2023-08-30 04:00] VITALS: BP 128/77; TEMP 97.6; O2SAT 98
[2023-08-30 08:00] VITALS: BP 141/93; TEMP 97.8; O2SAT 97
[2023-08-30] MEDS: BUMETANIDE INJ 16 MG in IV NS 0.9% 16 ML IV ONE (10:20)
[2023-08-30] MEDS: POTASSIUM CHLORIDE 20 MEQ TAB.PRT.SR PO SCH (11:03)
[2023-08-30 12:00] VITALS: BP 130/91; TEMP 97.7; O2SAT 100
[2023-08-30 13:14] LABS: BASOPHILS % (AUTO) 0.7 % (0.0-2.0); EOSINOPHILS # (AUTO) 0.1 K/uL (0.0-0.7); EOSINOPHILS % (AUTO) 1.5 % (0.0-6.0); HEMATOCRIT 32 % (39-51); HEMOGLOBIN 10.5 g/dL (13.5-17.5); LYMPHOCYTES # (AUTO) 0.9 K/uL (0.8-4.8); LYMPHOCYTES % (AUTO) 19.7 % (20.0-44.0); MEAN CORPUSCULAR HEMOGLOBIN 27 PG (26.0-33.0); MEAN CORPUSCULAR HGB CONC 33 g/dl (31.0-36.0); MEAN CORPUSCULAR VOLUME 81 fL (80-96); MONOCYTES # (AUTO) 0.7 K/uL (0.1-1.30); MONOCYTES % (AUTO) 16.3 % (2.0-12.0); NEUTROPHILS # (AUTO) 2.8 K/uL (1.8-8.9); NEUTROPHILS % (AUTO) 61.8 % (43.0-81.0); PLATELET COUNT (AUTO) 186 K/uL (150-450); RED BLOOD CELL COUNT(AUTO) 3.92 MIL/uL (4.5-6.0); RED CELL DISTRIBUTION WIDTH 22.2 % (11.5-15.0); WHITE BLOOD COUNT (AUTO) 4.6 K/uL (4.3-11.0)
[2023-08-30 13:32] LABS: ANISOCYTOSIS 2+; EOSINOPHILS % (MANUAL) 4 % (0-4); LYMPHOCYTES % (MANUAL) 18 % (16-48); MONOCYTES % (MANUAL) 10 % (0-11.0); NEUTROPHILS % (MANUAL) 68 (42-76); PLATELET ESTIMATE ADEQUATE
[2023-08-30 13:33] LABS: OVALOCYTES 1+
[2023-08-30 14:08] LABS: ALBUMIN 2.2 g/dL (3.4-5.0); BILIRUBIN,TOTAL 0.7 mg/dL (0.2-1.0); CREATININE 1.7 mg/dL (0.6-1.3); MAGNESIUM 1.7 mg/dL (1.8-2.4); PHOSPHORUS 3.2 mg/dL (2.5-4.9); POTASSIUM 3.6 mmol/L (3.5-5.1); TOTAL PROTEIN, SERUM 6.8 g/dL (6.4-8.2)
[2023-08-30 16:00] VITALS: BP 138/114; TEMP 98.2; O2SAT 98
[2023-08-30 20:00] VITALS: BP 155/85; TEMP 98.4; O2SAT 95
[2023-08-31] VITALS (7 sets, daily range): BP systolic 107–139; BP diastolic 65–84; TEMP 97.5–99.7; O2SAT 94–100
[2023-08-31 07:23] LABS: BASOPHILS % (AUTO) 0.9 % (0.0-2.0); EOSINOPHILS # (AUTO) 0.2 K/uL (0.0-0.7); EOSINOPHILS % (AUTO) 3.9 % (0.0-6.0); HEMATOCRIT 29 % (39-51); HEMOGLOBIN 9.5 g/dL (13.5-17.5); LYMPHOCYTES # (AUTO) 1.1 K/uL (0.8-4.8); LYMPHOCYTES % (AUTO) 25.3 % (20.0-44.0); MEAN CORPUSCULAR HEMOGLOBIN 27 PG (26.0-33.0); MEAN CORPUSCULAR HGB CONC 32 g/dl (31.0-36.0); MEAN CORPUSCULAR VOLUME 82 fL (80-96); MONOCYTES # (AUTO) 0.6 K/uL (0.1-1.30); MONOCYTES % (AUTO) 14.5 % (2.0-12.0); NEUTROPHILS # (AUTO) 2.3 K/uL (1.8-8.9); NEUTROPHILS % (AUTO) 55.4 % (43.0-81.0); PLATELET COUNT (AUTO) 181 K/uL (150-450); RED BLOOD CELL COUNT(AUTO) 3.58 MIL/uL (4.5-6.0); RED CELL DISTRIBUTION WIDTH 22.5 % (11.5-15.0); WHITE BLOOD COUNT (AUTO) 4.1 K/uL (4.3-11.0)
[2023-08-31 07:43] LABS: ALBUMIN 1.9 g/dL (3.4-5.0); BILIRUBIN,TOTAL 0.6 mg/dL (0.2-1.0); CALCIUM, SERUM 7.8 mg/dL (8.5-10.1); CREATININE 1.7 mg/dL (0.6-1.3); MAGNESIUM 1.7 mg/dL (1.8-2.4); PHOSPHORUS 3.5 mg/dL (2.5-4.9); POTASSIUM 3.6 mmol/L (3.5-5.1); TOTAL PROTEIN, SERUM 5.9 g/dL (6.4-8.2)
[2023-08-31] MEDS: BUMETANIDE INJ 16 MG in IV NS 0.9% 16 ML IV ONE (08:00)
[2023-08-31] MEDS: MAGNESIUM OXIDE 400 MG TABLET PO ONE (10:42)
[2023-09-01] VITALS: BP 131/83; TEMP 99.3; O2SAT 94
[2023-09-01 04:00] VITALS: BP 130/59; TEMP 99.4; O2SAT 94
[2023-09-01 08:00] VITALS: BP 134/62; TEMP 98.6; O2SAT 95
[2023-09-01 12:00] VITALS: BP 112/77; TEMP 98.6; O2SAT 93
[2023-09-01 16:00] VITALS: BP 131/71; TEMP 99.1; O2SAT 92
[2023-09-01 20:00] VITALS: BP 157/85; TEMP 99; O2SAT 96
[2023-09-02] VITALS: BP 142/94; TEMP 97.5; O2SAT 94
[2023-09-02 04:00] VITALS: BP 135/90; TEMP 99.3; O2SAT 98
[2023-09-02 06:45] LABS: BASOPHILS % (AUTO) 0.8 % (0.0-2.0); EOSINOPHILS # (AUTO) 0.1 K/uL (0.0-0.7); EOSINOPHILS % (AUTO) 1.3 % (0.0-6.0); HEMATOCRIT 30 % (39-51); HEMOGLOBIN 9.6 g/dL (13.5-17.5); LYMPHOCYTES # (AUTO) 1.3 K/uL (0.8-4.8); LYMPHOCYTES % (AUTO) 28.9 % (20.0-44.0); MEAN CORPUSCULAR HEMOGLOBIN 26 PG (26.0-33.0); MEAN CORPUSCULAR HGB CONC 32 g/dl (31.0-36.0); MEAN CORPUSCULAR VOLUME 82 fL (80-96); MONOCYTES # (AUTO) 0.6 K/uL (0.1-1.30); MONOCYTES % (AUTO) 12.5 % (2.0-12.0); NEUTROPHILS # (AUTO) 2.6 K/uL (1.8-8.9); NEUTROPHILS % (AUTO) 56.5 % (43.0-81.0); PLATELET COUNT (AUTO) 183 K/uL (150-450); RED BLOOD CELL COUNT(AUTO) 3.63 MIL/uL (4.5-6.0); RED CELL DISTRIBUTION WIDTH 22.7 % (11.5-15.0); WHITE BLOOD COUNT (AUTO) 4.7 K/uL (4.3-11.0)
[2023-09-02 07:47] LABS: ALBUMIN 1.9 g/dL (3.4-5.0); BILIRUBIN,TOTAL 0.8 mg/dL (0.2-1.0); CALCIUM, SERUM 7.7 mg/dL (8.5-10.1); CREATININE 1.6 mg/dL (0.6-1.3); MAGNESIUM 1.5 mg/dL (1.8-2.4); PHOSPHORUS 3.7 mg/dL (2.5-4.9); POTASSIUM 3.4 mmol/L (3.5-5.1); TOTAL PROTEIN, SERUM 6.1 g/dL (6.4-8.2)
[2023-09-02 08:00] VITALS: BP 158/113; TEMP 98.2; O2SAT 92; O2SAT 95
[2023-09-02] MEDS: BUMETANIDE INJ 16 MG in IV NS 0.9% 16 ML IV ONE (09:07)
[2023-09-02] MEDS: POTASSIUM CHLORIDE 20 MEQ TAB.PRT.SR PO SCH (10:13)
[2023-09-02] MEDS: MAGNESIUM OXIDE 400 MG TABLET PO ONE (11:23)
[2023-09-02 12:00] VITALS: BP 150/71; TEMP 98.6; O2SAT 95
[2023-09-02 16:00] VITALS: BP 126/98; TEMP 98.4; O2SAT 97
[2023-09-02 20:00] VITALS: BP 127/86; TEMP 98.3; O2SAT 97
[2023-09-03] VITALS: BP 121/87; TEMP 98.3; O2SAT 97
[2023-09-03 04:00] VITALS: BP 147/89; TEMP 98.2; O2SAT 100
[2023-09-03 06:40] LABS: BASOPHILS # (AUTO) 0.1 K/uL (0.0-0.2); BASOPHILS % (AUTO) 1.3 % (0.0-2.0); EOSINOPHILS # (AUTO) 0.2 K/uL (0.0-0.7); EOSINOPHILS % (AUTO) 3.6 % (0.0-6.0); HEMATOCRIT 30 % (39-51); HEMOGLOBIN 9.7 g/dL (13.5-17.5); LYMPHOCYTES % (AUTO) 23.7 % (20.0-44.0); MEAN CORPUSCULAR HEMOGLOBIN 27 PG (26.0-33.0); MEAN CORPUSCULAR HGB CONC 33 g/dl (31.0-36.0); MEAN CORPUSCULAR VOLUME 82 fL (80-96); MONOCYTES # (AUTO) 0.7 K/uL (0.1-1.30); MONOCYTES % (AUTO) 16.2 % (2.0-12.0); NEUTROPHILS # (AUTO) 2.3 K/uL (1.8-8.9); NEUTROPHILS % (AUTO) 55.2 % (43.0-81.0); PLATELET COUNT (AUTO) 190 K/uL (150-450); RED BLOOD CELL COUNT(AUTO) 3.62 MIL/uL (4.5-6.0); RED CELL DISTRIBUTION WIDTH 22.6 % (11.5-15.0); WHITE BLOOD COUNT (AUTO) 4.3 K/uL (4.3-11.0)
[2023-09-03 06:54] LABS: ALANINE AMINOTRANSFERASE < 6 U/L (12-78); ALBUMIN 1.8 g/dL (3.4-5.0); ALKALINE PHOSPHATASE 106 U/L (46-116); ASPARTATE AMINOTRANSFERASE 18 U/L (15-37); BILIRUBIN,TOTAL 0.7 mg/dL (0.2-1.0); CALCIUM, SERUM 7.7 mg/dL (8.5-10.1); CARBON DIOXIDE 38 mmol/L (21-32); CHLORIDE 97 mmol/L (98-107); CREATININE 1.6 mg/dL (0.6-1.3); GLUCOSE 98 mg/dL (74-106); MAGNESIUM 1.8 mg/dL (1.8-2.4); PHOSPHORUS 4.2 mg/dL (2.5-4.9); POTASSIUM 3.4 mmol/L (3.5-5.1); SODIUM SERUM 139 mmol/L (136-145); UREA NITROGEN, BLOOD 24 mg/dL (7-18)
[2023-09-03 08:00] VITALS: BP 145/92; TEMP 97.8; O2SAT 94
[2023-09-03 09:53] LABS: ANISOCYTOSIS 1+; EOSINOPHILS % (MANUAL) 1 % (0-4); LYMPHOCYTES % (MANUAL) 26 % (16-48); MONOCYTES % (MANUAL) 8 % (0-11.0); NEUTROPHILS % (MANUAL) 65 (42-76); PLATELET ESTIMATE ADEQUATE
[2023-09-03 09:54] LABS: OVALOCYTES 1+
[2023-09-03] MEDS: POTASSIUM CHLORIDE 20 MEQ TAB.PRT.SR PO SCH (10:28)
[2023-09-03] MEDS: BUMETANIDE INJ 16 MG in IV NS 0.9% 16 ML IV ONE (10:28)
[2023-09-03 16:00] VITALS: BP 118/81; TEMP 98.2; O2SAT 96
[2023-09-03 20:00] VITALS: BP 139/80; TEMP 99; O2SAT 95
[2023-09-03] MEDS: DIVALPROEX SODIUM 125 MG CAP.SPRINK PO SCH (22:37)
[2023-09-04] VITALS: BP 135/78; TEMP 99; O2SAT 94
[2023-09-04 04:00] VITALS: BP 138/75; TEMP 98.6; O2SAT 95
[2023-09-04 06:36] LABS: EOSINOPHILS # (AUTO) 0.2 K/uL (0.0-0.7); EOSINOPHILS % (AUTO) 4.1 % (0.0-6.0); HEMATOCRIT 32 % (39-51); HEMOGLOBIN 10.5 g/dL (13.5-17.5); LYMPHOCYTES # (AUTO) 1.3 K/uL (0.8-4.8); LYMPHOCYTES % (AUTO) 31.4 % (20.0-44.0); MEAN CORPUSCULAR HEMOGLOBIN 27 PG (26.0-33.0); MEAN CORPUSCULAR HGB CONC 33 g/dl (31.0-36.0); MEAN CORPUSCULAR VOLUME 82 fL (80-96); MONOCYTES # (AUTO) 0.6 K/uL (0.1-1.30); MONOCYTES % (AUTO) 14.9 % (2.0-12.0); NEUTROPHILS # (AUTO) 2.1 K/uL (1.8-8.9); NEUTROPHILS % (AUTO) 48.6 % (43.0-81.0); PLATELET COUNT (AUTO) 219 K/uL (150-450); RED BLOOD CELL COUNT(AUTO) 3.91 MIL/uL (4.5-6.0); RED CELL DISTRIBUTION WIDTH 22.5 % (11.5-15.0); WHITE BLOOD COUNT (AUTO) 4.3 K/uL (4.3-11.0)
[2023-09-04 07:03] LABS: BILIRUBIN,TOTAL 0.7 mg/dL (0.2-1.0); CALCIUM, SERUM 8.3 mg/dL (8.5-10.1); CREATININE 1.7 mg/dL (0.6-1.3); MAGNESIUM 1.7 mg/dL (1.8-2.4); PHOSPHORUS 5.2 mg/dL (2.5-4.9); POTASSIUM 3.3 mmol/L (3.5-5.1); TOTAL PROTEIN, SERUM 6.3 g/dL (6.4-8.2)
[2023-09-04 08:00] VITALS: BP 110/88; TEMP 98.1; O2SAT 95
[2023-09-04] MEDS: Magnesium 1GM/D5W 100ML PREMIX 100 ML IV SCH (08:51)
[2023-09-04] MEDS: POTASSIUM CHLORIDE 20 MEQ TAB.PRT.SR PO SCH (08:52)
[2023-09-04 12:00] VITALS: BP 110/88; TEMP 98.1; O2SAT 95
[2023-09-04 12:31] LABS: ANISOCYTOSIS 1+; EOSINOPHILS % (MANUAL) 4 % (0-4); LYMPHOCYTES % (MANUAL) 36 % (16-48); MONOCYTES % (MANUAL) 14 % (0-11.0); MYELOCYTES % 1 % (0-0); NEUTROPHILS % (MANUAL) 45 (42-76); OVALOCYTES 1+; PLATELET ESTIMATE ADEQUATE
[2023-09-04 16:00] VITALS: BP 121/72; TEMP 98.2; O2SAT 95
[2023-09-04 20:00] VITALS: BP 120/85; TEMP 98.6; O2SAT 95
[2023-09-05] VITALS (7 sets, daily range): BP systolic 97–130; BP diastolic 62–77; TEMP 98.1–98.3; O2SAT 94–96
[2023-09-05 08:24] LABS: BASOPHILS # (AUTO) 0.1 K/uL (0.0-0.2); BASOPHILS % (AUTO) 1.3 % (0.0-2.0); EOSINOPHILS # (AUTO) 0.1 K/uL (0.0-0.7); EOSINOPHILS % (AUTO) 3.4 % (0.0-6.0); HEMATOCRIT 31 % (39-51); HEMOGLOBIN 10.2 g/dL (13.5-17.5); LYMPHOCYTES # (AUTO) 1.6 K/uL (0.8-4.8); MEAN CORPUSCULAR HEMOGLOBIN 27 PG (26.0-33.0); MEAN CORPUSCULAR HGB CONC 33 g/dl (31.0-36.0); MEAN CORPUSCULAR VOLUME 82 fL (80-96); MONOCYTES # (AUTO) 0.7 K/uL (0.1-1.30); MONOCYTES % (AUTO) 16.2 % (2.0-12.0); NEUTROPHILS # (AUTO) 1.9 K/uL (1.8-8.9); NEUTROPHILS % (AUTO) 42.1 % (43.0-81.0); PLATELET COUNT (AUTO) 214 K/uL (150-450); RED BLOOD CELL COUNT(AUTO) 3.81 MIL/uL (4.5-6.0); RED CELL DISTRIBUTION WIDTH 22.7 % (11.5-15.0); WHITE BLOOD COUNT (AUTO) 4.4 K/uL (4.3-11.0)
[2023-09-05 08:56] LABS: CALCIUM, SERUM 7.6 mg/dL (8.5-10.1); CREATININE 1.7 mg/dL (0.6-1.3); PHOSPHORUS 4.5 mg/dL (2.5-4.9); POTASSIUM 3.4 mmol/L (3.5-5.1)
[2023-09-05] MEDS: FUROSEMIDE 40 MG TABLET PO SCH (11:54)
[2023-09-05] MEDS: POTASSIUM CHLORIDE 20 MEQ TAB.PRT.SR PO SCH (11:55)
[2023-09-05 12:40] LABS: NEUTROPHILS % (MANUAL) 43 (42-76)
[2023-09-05 12:41] LABS: ANISOCYTOSIS 1+; EOSINOPHILS % (MANUAL) 3 % (0-4); HYPOCHROMASIA 1+; LYMPHOCYTES % (MANUAL) 35 % (16-48); MONOCYTES % (MANUAL) 16 % (0-11.0); OVALOCYTES 1+; PLATELET ESTIMATE ADEQUATE
[2023-09-05] MEDS ORDERED: BISA10SU11 RC (21:10)
[2023-09-05] MEDS ORDERED: CLOT15CR35 TP (21:12)
[2023-09-05] MEDS ORDERED: DIVA125C2 PO (21:14)
[2023-09-05] MEDS ORDERED: DOCU100T2 PO (21:15)
[2023-09-05] MEDS ORDERED: DONE5TAB34 PO (21:16)
[2023-09-05] MEDS ORDERED: METO2.5T7 PO (21:17)
[2023-09-05] MEDS ORDERED: METO50TA16 PO (21:19)
[2023-09-05] MEDS ORDERED: POTA20TA83 PO (21:21)
[2023-09-05] MEDS ORDERED: SENN-18 PO (21:22)
[2023-09-05] MEDS ORDERED: SPIR25TA6 PO (21:23)
[2023-09-05] MEDS ORDERED: ZOLP5TAB8 PO (21:24)
[2023-09-05] MEDS ORDERED: RISP0.5T65 PO (21:26)
[2023-09-05] MEDS ORDERED: HYDR100T27 PO (21:26)
[2023-09-05] MEDS ORDERED: MINE50OI TP (21:30)
[2023-09-05] MEDS ORDERED: ONDA-97 PO (21:31)
[2023-09-06] MEDS ORDERED: METO5TAB7 PO (10:34)
[2023-09-06] MEDS ORDERED: MAG30ORA PO (10:34)
[2023-09-06] MEDS ORDERED: MAGN400O6 PO (10:34)
[2023-09-06] MEDS ORDERED: ALLA266C2 TP (10:34)
[2023-09-06] MEDS ORDERED: FURO40TA5 PO (10:34)
[2023-09-06] MEDS ORDERED: ACET325T53 PO (10:34)
== END 2023-09-05 23:05 | DRG 291 ==
LOC: ER 06:59 → TELE 10:02 → MED 08-27 09:53 → MEDSG1 08-29 08:59 → TELE-TD 08-29 09:18 → TELE1 09-04 16:15 → MEDSG1 09-05 10:12
PROVIDERS: ADMIT Nurse Practitioner Acute Care; ATTEND Student in an Organized Health Care Education/Training Program
PROC: 05HC33Z Insertion of Infusion Device into Left Basilic Vein, Percutaneous Approach (ICD-10-PCS; principal; 2023-08-24)
DX: I13.0 Hypertensive heart and chronic kidney disease with heart failure and stage 1 through stage 4 chronic kidney disease, or unspecified chronic kidney disease (principal); I50.23 Acute on chronic systolic (congestive) heart failure; J96.01 Acute respiratory failure with hypoxia; N17.9 Acute kidney failure, unspecified; I48.20 Chronic atrial fibrillation, unspecified; F03.92 Unspecified dementia, unspecified severity, with psychotic disturbance; F03.94 Unspecified dementia, unspecified severity, with anxiety; F03.911 Unspecified dementia, unspecified severity, with agitation; I31.39 Other pericardial effusion (noninflammatory); E87.3 Alkalosis; J90 Pleural effusion, not elsewhere classified; N18.9 Chronic kidney disease, unspecified; D63.8 Anemia in other chronic diseases classified elsewhere; Z87.891 Personal history of nicotine dependence; Z79.899 Other long term (current) drug therapy; Z99.81 Dependence on supplemental oxygen; K76.9 Liver disease, unspecified; Z88.0 Allergy status to penicillin; N50.89 Other specified disorders of the male genital organs; L60.3 Nail dystrophy; K80.20 Calculus of gallbladder without cholecystitis without obstruction; J43.9 Emphysema, unspecified; J44.9 Chronic obstructive pulmonary disease, unspecified; I42.9 Cardiomyopathy, unspecified; B35.3 Tinea pedis; S81.802A Unspecified open wound, left lower leg, initial encounter; S81.801A Unspecified open wound, right lower leg, initial encounter; X58.XXXA Exposure to other specified factors, initial encounter; Y92.9 Unspecified place or not applicable; E03.8 Other specified hypothyroidism; T50.2X5A Adverse effect of carbonic-anhydrase inhibitors, benzothiadiazides and other diuretics, initial encounter; Z96.642 Presence of left artificial hip joint; Z91.199 Patient's noncompliance with other medical treatment and regimen due to unspecified reason; I70.0 Atherosclerosis of aorta; I48.91 Unspecified atrial fibrillation
CPT/HCPCS: 36410; 36415; 71045-TC; 76700-TC; 80048-TC; 80053-TC; 80061-TC; 80076-TC; 80164-TC; 82728-TC; 83540-TC; 83690-TC; 83735-TC; 83880; 84100-TC; 84155; 84165; 84439-TC; 84443-TC; 84481; 84484-TC; 85025-TC; 93307-TC; 94760-TC; 94761-TC; 94799-TC; 97112-TC; 97530-TC; A4223; A6403; C9113; G0378; J1250; J1940; J2916; J3475; J3490; J7030; J7050; J7060; J7120

== ENCOUNTER 2023-09-05 23:07 | Inpatient (IN) | payer BC ==
[~2023-09-05] VITALS: Ht 177.8 cm; Wt 87.5 kg
[~2023-09-05 23:07] MED LIST changes: +AMIO200T5 PO; -AMLO1CAP PO; +APIX5TAB PO; +BISA10SU11 RC; -CARV12.52 PO; +CLOT15CR35 TP; +DIVA125C2 PO; +DOCU100T2 PO; +DONE5TAB34 PO; +FOLI0.4T6 PO; +FURO-145 PO; -HYDR-3980 PO; +HYDR100T27 PO; -HYDR25TA4 PO; +METO-357 PO; +METO2.5T7 PO; +METO50TA16 PO; +MINE50OI TP; +ONDA-97 PO; +PANT40TA2 PO; +POTA20TA83 PO; +RISP0.5T65 PO; +SENN-18 PO; +SPIR25TA6 PO; +ZOLP5TAB8 PO
[2023-09-05] MEDS ORDERED: MAG HYDROX/AL HYDROX/SIMETH 30 ML UDC PO PRN (23:30)
[2023-09-05] MEDS ORDERED: ACETAMINOPHEN 325 MG TABLET PO PRN (23:30)
[2023-09-05] MEDS ORDERED: TEMAZEPAM 7.5 MG CAPSULE PO PRN (23:30)
[2023-09-05] MEDS ORDERED: MAGNESIUM HYDROXIDE 30 ML UDC PO PRN (23:30)
[2023-09-05] MEDS: BLOOD SUGAR DIAGNOSTIC 1 EACH STRIP IN ONE (23:55)
[2023-09-06 08:00] VITALS: BP 133/90; TEMP 98; O2SAT 98
[2023-09-06] MEDS ORDERED: MAGN400O6 PO (10:34)
[2023-09-06] MEDS ORDERED: MAG30ORA PO (10:34)
[2023-09-06] MEDS ORDERED: METO5TAB7 PO (10:34)
[2023-09-06] MEDS ORDERED: FURO40TA5 PO (10:34)
[2023-09-06] MEDS ORDERED: ALLA266C2 TP (10:34)
[2023-09-06] MEDS ORDERED: ACET325T53 PO (10:34)
[2023-09-06] MEDS ORDERED: BISACODYL SUPP (10 MG) 10 MG/SUPP.RECT SUPP.RECT RC PRN (11:30)
[2023-09-06] MEDS: METOLAZONE 2.5 MG TABLET PO SCH (11:30)
[2023-09-06] MEDS: PANTOPRAZOLE 40 MG TABLET.DR PO SCH (12:20)
[2023-09-06] MEDS: FOLIC ACID 1 MG TABLET PO SCH (12:20)
[2023-09-06] MEDS: SPIRONOLACTONE 25 MG TABLET PO SCH (12:20)
[2023-09-06] MEDS: DOCUSATE SODIUM 100 MG CAPSULE PO SCH (12:20)
[2023-09-06] MEDS: POTASSIUM CHLORIDE 20 MEQ TAB.PRT.SR PO SCH (12:20)
[2023-09-06] MEDS: APIXABAN 5 MG TABLET PO SCH (12:21)
[2023-09-06] MEDS: clonazePAM 0.5 MG TABLET PO PRN (12:21)
[2023-09-06] MEDS: FUROSEMIDE 40 MG TABLET PO SCH (12:22)
[2023-09-06] MEDS: METOPROLOL TARTRATE 50 MG TABLET PO SCH (13:00)
[2023-09-06] MEDS: hydrALAZINE HCL 50 MG TABLET PO SCH (13:00)
[2023-09-06 16:00] VITALS: BP 127/86; TEMP 98.6; O2SAT 98
[2023-09-06] MEDS: DIVALPROEX SODIUM 250 MG TABLET.DR PO SCH (17:02)
[2023-09-06] MEDS: risperiDONE 0.25 MG TABLET PO SCH (17:02)
[2023-09-06 20:00] VITALS: BP 130/72; TEMP 98.1; O2SAT 90
[2023-09-06] MEDS: SENNOSIDES 8.6 MG TABLET PO SCH (21:40)
[2023-09-06] MEDS: DONEPEZIL 5 MG TABLET PO SCH (21:40)
[2023-09-07 08:00] VITALS: BP 126/72; TEMP 98.6; O2SAT 98
[2023-09-07 11:56] LABS: BASOPHILS # (AUTO) 0.1 K/uL (0.0-0.2); BASOPHILS % (AUTO) 1.6 % (0.0-2.0); EOSINOPHILS # (AUTO) 0.1 K/uL (0.0-0.7); EOSINOPHILS % (AUTO) 3.5 % (0.0-6.0); HEMATOCRIT 31 % (39-51); HEMOGLOBIN 9.9 g/dL (13.5-17.5); LYMPHOCYTES # (AUTO) 1.1 K/uL (0.8-4.8); MEAN CORPUSCULAR HEMOGLOBIN 27 PG (26.0-33.0); MEAN CORPUSCULAR HGB CONC 32 g/dl (31.0-36.0); MEAN CORPUSCULAR VOLUME 84 fL (80-96); MONOCYTES # (AUTO) 0.8 K/uL (0.1-1.30); MONOCYTES % (AUTO) 19.1 % (2.0-12.0); NEUTROPHILS # (AUTO) 1.9 K/uL (1.8-8.9); NEUTROPHILS % (AUTO) 46.8 % (43.0-81.0); PLATELET COUNT (AUTO) 200 K/uL (150-450); RED BLOOD CELL COUNT(AUTO) 3.68 MIL/uL (4.5-6.0); RED CELL DISTRIBUTION WIDTH 23.1 % (11.5-15.0)
[2023-09-07 12:12] LABS: ALBUMIN 2.2 g/dL (3.4-5.0); BILIRUBIN,DIRECT 0.4 mg/dL (0.0-0.2); BILIRUBIN,TOTAL 0.6 mg/dL (0.2-1.0); CALCIUM, SERUM 7.7 mg/dL (8.5-10.1); CREATININE 2.1 mg/dL (0.6-1.3); MAGNESIUM 2.2 mg/dL (1.8-2.4); PHOSPHORUS 4.2 mg/dL (2.5-4.9); POTASSIUM 3.6 mmol/L (3.5-5.1); TOTAL PROTEIN, SERUM 6.9 g/dL (6.4-8.2)
[2023-09-07 13:02] LABS: ANISOCYTOSIS 1+; BASOPHILS % (MANUAL) 0 % (0.0-2.0); EOSINOPHILS % (MANUAL) 1 % (0-4); LYMPHOCYTES % (MANUAL) 31 % (16-48); MONOCYTES % (MANUAL) 15 % (0-11.0); NEUTROPHILS % (MANUAL) 52 (42-76); PLATELET ESTIMATE ADEQUATE
[2023-09-07 13:03] LABS: OVALOCYTES 1+
[2023-09-07 16:00] VITALS: BP 116/71; TEMP 97.7; O2SAT 92
[2023-09-07 21:06] VITALS: BP 112/80; TEMP 97.9; O2SAT 93
[2023-09-08 08:00] VITALS: BP 101/68; TEMP 97.7; O2SAT 93
[2023-09-08 12:42] VITALS: BP 111/69; TEMP 97.7; O2SAT 93
[2023-09-08 16:00] VITALS: BP 120/91; TEMP 98; O2SAT 92
[2023-09-08 20:00] VITALS: BP 122/87; TEMP 98.2; O2SAT 95
[2023-09-09 05:17] VITALS: BP 120/70; TEMP 98; O2SAT 99
[2023-09-09 08:00] VITALS: BP 126/90; TEMP 98.7; O2SAT 99
[2023-09-09 12:14] VITALS: BP 113/71
== END 2023-09-09 15:05 | disposition home or self-care (01) | DRG 885 ==
LOC: GPS 23:07
PROVIDERS: ADMIT Nurse Practitioner Psychiatric/Mental Health; ATTEND Nurse Practitioner Family
DX: F29 Unspecified psychosis not due to a substance or known physiological condition (principal); N17.9 Acute kidney failure, unspecified; N18.9 Chronic kidney disease, unspecified; I50.23 Acute on chronic systolic (congestive) heart failure; J96.01 Acute respiratory failure with hypoxia; I13.0 Hypertensive heart and chronic kidney disease with heart failure and stage 1 through stage 4 chronic kidney disease, or unspecified chronic kidney disease; F03.92 Unspecified dementia, unspecified severity, with psychotic disturbance; I42.9 Cardiomyopathy, unspecified; J90 Pleural effusion, not elsewhere classified; E87.3 Alkalosis; J44.9 Chronic obstructive pulmonary disease, unspecified; Z91.199 Patient's noncompliance with other medical treatment and regimen due to unspecified reason; I48.91 Unspecified atrial fibrillation; E03.8 Other specified hypothyroidism; E11.22 Type 2 diabetes mellitus with diabetic chronic kidney disease; D63.8 Anemia in other chronic diseases classified elsewhere; J43.9 Emphysema, unspecified; T50.2X5A Adverse effect of carbonic-anhydrase inhibitors, benzothiadiazides and other diuretics, initial encounter; Y92.9 Unspecified place or not applicable; Z88.0 Allergy status to penicillin; Z87.891 Personal history of nicotine dependence
CPT/HCPCS: 36415; 36600; 80048-TC; 80061-TC; 80076-TC; 82803-TC; 82962-TC; 83735-TC; 84100-TC; 85025-TC; 87081-TC; 97112-TC; 97530-TC

== ENCOUNTER 2023-09-28 18:54 | Emergency (ER) | payer BC, MEDICAID ==
[~2023-09-28] VITALS: Ht 177.8 cm; Wt 83.9 kg
[~2023-09-28 18:54] MED LIST changes: +ACET325T53 PO; +ALLA266C2 TP; -AMIO200T5 PO; -FURO-145 PO; +FURO40TA5 PO; +MAG30ORA PO; +MAGN400O6 PO; -METO-357 PO; -METO2.5T7 PO; +METO5TAB7 PO
[2023-09-28] MEDS ORDERED: HYDROCODONE/APAP 5/325MG TABLET ONE (19:55)
[2023-09-28] MEDS ORDERED: KETOROLAC TROMETHAMINE INJ 30 MG/ML VIAL ONE (19:55)
[2023-09-28] MEDS: KETOROLAC TROMETHAMINE INJ 30 MG/ML VIAL IM ONE (20:05)
[2023-09-28] MEDS: HYDROCODONE/APAP 5/325MG TABLET PO ONE (20:05)
[2023-09-28] MEDS ORDERED: MINE50OI TP (20:06)
[2023-09-28] MEDS ORDERED: CLOT15CR35 TP (20:06)
[2023-09-28] MEDS ORDERED: HYDR-4209 PO (20:06)
[2023-09-28 20:37] VITALS: BP 148/100; TEMP 98; O2SAT 98
== END 2023-09-29 00:35 | disposition home or self-care (01) ==
LOC: ER 18:57
DX: G89.29 Other chronic pain (principal); M79.605 Pain in left leg; M79.604 Pain in right leg; Z76.0 Encounter for issue of repeat prescription; I10 Essential (primary) hypertension; Z79.899 Other long term (current) drug therapy; Z88.0 Allergy status to penicillin
CPT/HCPCS: 99283; 96372; J1885

== ENCOUNTER 2023-10-25 11:35 | Inpatient (IN) | payer BC, MEDICAID ==
[~2023-10-25] VITALS: Ht 177.8 cm; Wt 81.6 kg
[~2023-10-25 11:35] MED LIST changes: +HYDR-4209 PO
[2023-10-25 12:33] LABS: BASOPHILS # (AUTO) 0.1 K/uL (0.0-0.2); BASOPHILS % (AUTO) 1.2 % (0.0-2.0); EOSINOPHILS % (AUTO) 0.9 % (0.0-6.0); HEMATOCRIT 37 % (39-51); HEMOGLOBIN 11.9 g/dL (13.5-17.5); LYMPHOCYTES # (AUTO) 1.3 K/uL (0.8-4.8); MEAN CORPUSCULAR HEMOGLOBIN 28 PG (26.0-33.0); MEAN CORPUSCULAR HGB CONC 32 g/dl (31.0-36.0); MEAN CORPUSCULAR VOLUME 86 fL (80-96); MONOCYTES # (AUTO) 0.6 K/uL (0.1-1.30); MONOCYTES % (AUTO) 13.6 % (2.0-12.0); NEUTROPHILS # (AUTO) 2.5 K/uL (1.8-8.9); NEUTROPHILS % (AUTO) 55.3 % (43.0-81.0); PLATELET COUNT (AUTO) 241 K/uL (150-450); RED BLOOD CELL COUNT(AUTO) 4.32 MIL/uL (4.5-6.0); RED CELL DISTRIBUTION WIDTH 24.9 % (11.5-15.0); WHITE BLOOD COUNT (AUTO) 4.5 K/uL (4.3-11.0)
[2023-10-25 12:36] LABS: CALCIUM, SERUM 8.7 mg/dL (8.5-10.1); CARBON DIOXIDE 24 mmol/L (21-32); CHLORIDE 101 mmol/L (98-107); CREATININE 3.4 mg/dL (0.6-1.3); GLUCOSE 113 mg/dL (74-106); SODIUM SERUM 138 mmol/L (136-145); UREA NITROGEN, BLOOD 72 mg/dL (7-18)
[2023-10-25] MEDS: PANTOPRAZOLE 80 MG in IV NS 0.9% 100 ML IV ONE (12:36)
[2023-10-25 12:40] LABS: INR 1.79 (0.91-1.10); PROTHROMBIN TIME 18.3 SECS (9.2-11.1)
[2023-10-25 12:41] LABS: ALANINE AMINOTRANSFERASE 167 U/L (12-78); ALBUMIN 2.9 g/dL (3.4-5.0); ALKALINE PHOSPHATASE 261 U/L (46-116); ASPARTATE AMINOTRANSFERASE 364 U/L (15-37); LIPASE 41 U/L (16-77); TOTAL PROTEIN, SERUM 8.1 g/dL (6.4-8.2)
[2023-10-25] MEDS ORDERED: SODIUM POLYSTYRENE SULFONATE 15 G/60 ML BOTTLE ONE ×2 (12:44→12:45)
[2023-10-25] MEDS ORDERED: SODIUM BICARBONATE SYR 50 MEQ/50 ML DISP.SYRIN ONE (12:44)
[2023-10-25] MEDS ORDERED: FUROSEMIDE 20 MG/2 ML VIAL ONE (12:45)
[2023-10-25] MEDS: FUROSEMIDE 40 MG/4 ML VIAL IV ONE ×2 (12:47→15:44)
[2023-10-25] MEDS: SODIUM BICARBONATE SYR 50 MEQ/50 ML DISP.SYRIN IV ONE (12:48)
[2023-10-25] MEDS: SODIUM POLYSTYRENE SULFONATE 15 G/60 ML BOTTLE PO ONE (12:48)
[2023-10-25] MEDS: IV NS 0.9% 1,000 ML BAG IV ONE (12:50)
[2023-10-25 12:55] LABS: BILIRUBIN,TOTAL 1.5 mg/dL (0.2-1.0)
[2023-10-25 13:08] LABS: APPEARANCE,URINE SLIGHTLY CLOUDY (CLEAR); BILIRUBIN,URINE 1+ (NEGATIVE); BLOOD, URINE NEGATIVE Ery/uL (NEGATIVE); COLOR,URINE YELLOW (YELLOW); KETONES,URINE TRACE mg/dL (NEGATIVE); LEUKOCYTE ESTERASE ,URINE NEGATIVE (NEGATIVE); NITRITE, URINE NEGATIVE (NEGATIVE); PH,URINE 5.5 (5.0-8.0); PROTEIN,URINE 1+ mg/dl (NEGATIVE); UGLUCOSE NEGATIVE (NEGATIVE)
[2023-10-25] MEDS ORDERED: ALBUTEROL FS 2.5 MG/3 ML VIAL.NEB ONE (13:20)
[2023-10-25 13:25] VITALS: O2SAT 93
[2023-10-25] MEDS: ALBUTEROL FS 2.5 MG/3 ML VIAL.NEB NEB ONE (13:25)
[2023-10-25 13:26] LABS: ADD URINE CULTURE NO; BACTERIA,URINE None seen /HPF (None Seen); RBC,URINE 0-2 /HPF (0-2); TRICHOMONAS,URINE None Seen /HPF (None Seen); URINE AMORPHOUS URATE Few /HPF (None Seen); YEAST,URINE None Seen /HPF (None Seen)
[2023-10-25 13:27] LABS: FINE GRANULAR CASTS,URINE Few /LPF (None Seen); HYALINE CASTS, URINE Few /LPF (None Seen)
[2023-10-25 13:29] VITALS: O2SAT 98
[2023-10-25] MEDS: PANTOPRAZOLE 80 MG in IV NS 0.9% 500 ML IV ONE (13:31)
[2023-10-25] MEDS ORDERED: IV 1/2NS 1000 ML 1,000 ML IV PRN (15:00)
[2023-10-25] MEDS ORDERED: HYDROCODONE/APAP 5/325MG TABLET PO PRN (15:00)
[2023-10-25] MEDS ORDERED: MAG HYDROX/AL HYDROX/SIMETH 30 ML UDC PO PRN (15:00)
[2023-10-25] MEDS ORDERED: ONDANSETRON HCL/PF 4 MG/2 ML VIAL IVP PRN (15:00)
[2023-10-25] MEDS ORDERED: ZOLPIDEM TARTRATE 5 MG TABLET PO PRN (15:00)
[2023-10-25] MEDS ORDERED: Z GUARD REMEDY 4 OZ OINT TP PRN (15:00)
[2023-10-25] MEDS ORDERED: MAGNESIUM HYDROXIDE 30 ML UDC PO PRN (15:00)
[2023-10-25 15:17] VITALS: BP 129/85; TEMP 97.5; O2SAT 99
[2023-10-25] MEDS: ACETAMINOPHEN 325 MG TABLET PO PRN (15:44)
[2023-10-26] MEDS ORDERED: PANTOPRAZOLE 40 MG VIAL IV SCH (09:00)
== END 2023-10-26 04:40 | disposition left against medical advice (07) | DRG 378 ==
LOC: ER 11:39 → TELE1 14:28
DX: K92.1 Melena (principal); I13.0 Hypertensive heart and chronic kidney disease with heart failure and stage 1 through stage 4 chronic kidney disease, or unspecified chronic kidney disease; I50.22 Chronic systolic (congestive) heart failure; N17.9 Acute kidney failure, unspecified; I42.9 Cardiomyopathy, unspecified; I31.39 Other pericardial effusion (noninflammatory); J90 Pleural effusion, not elsewhere classified; N18.9 Chronic kidney disease, unspecified; E11.22 Type 2 diabetes mellitus with diabetic chronic kidney disease; E03.8 Other specified hypothyroidism; Z88.0 Allergy status to penicillin; Z87.891 Personal history of nicotine dependence; Z79.01 Long term (current) use of anticoagulants; Z79.899 Other long term (current) drug therapy; I48.91 Unspecified atrial fibrillation; J44.9 Chronic obstructive pulmonary disease, unspecified; K59.00 Constipation, unspecified; D63.8 Anemia in other chronic diseases classified elsewhere; F29 Unspecified psychosis not due to a substance or known physiological condition; Z53.29 Procedure and treatment not carried out because of patient's decision for other reasons; E87.5 Hyperkalemia
CPT/HCPCS: 36415; 71045-TC; 80048-TC; 80076-TC; 81001; 83690-TC; 84484-TC; 85025-TC; 85730-TC; 87086-TC; 94799-TC; A4223; C9113; G0378; J1940; J3490; J7030; J7040

== ENCOUNTER 2024-04-17 09:55 | Inpatient (IN) | payer BC, MEDICAID ==
[~2024-04-17] VITALS: Ht 177.8 cm; Wt 77.8 kg
[~2024-04-17 09:55] MED LIST changes: -ACET325T53 PO; -ALLA266C2 TP; -BISA10SU11 RC; -CLOT15CR35 TP; -DIVA125C2 PO; -DOCU100T2 PO; -DONE5TAB34 PO; -MAG30ORA PO; -MAGN400O6 PO; -METO5TAB7 PO; -MINE50OI TP; -ONDA-97 PO; -RISP0.5T65 PO; -SENN-18 PO; -ZOLP5TAB8 PO
[2024-04-17 10:51] LABS: BASOPHILS # (AUTO) 0.1 K/uL (0.0-0.2); BASOPHILS % (AUTO) 2.3 % (0.0-2.0); EOSINOPHILS # (AUTO) 0.3 K/uL (0.0-0.7); HEMATOCRIT 30 % (39-51); HEMOGLOBIN 9.5 g/dL (13.5-17.5); LYMPHOCYTES # (AUTO) 1.7 K/uL (0.8-4.8); MEAN CORPUSCULAR HEMOGLOBIN 29 PG (26.0-33.0); MEAN CORPUSCULAR HGB CONC 31 g/dl (31.0-36.0); MEAN CORPUSCULAR VOLUME 93 fL (80-96); MONOCYTES # (AUTO) 0.9 K/uL (0.1-1.30); MONOCYTES % (AUTO) 15.9 % (2.0-12.0); NEUTROPHILS # (AUTO) 2.7 K/uL (1.8-8.9); NEUTROPHILS % (AUTO) 46.8 % (43.0-81.0); PLATELET COUNT (AUTO) 93 K/uL (150-450); RED BLOOD CELL COUNT(AUTO) 3.24 MIL/uL (4.5-6.0); RED CELL DISTRIBUTION WIDTH 23.3 % (11.5-15.0); WHITE BLOOD COUNT (AUTO) 5.7 K/uL (4.3-11.0)
[2024-04-17 11:06] LABS: INR 1.32 (0.91-1.10); PARTIAL THROMBOPLASTIN TIME 33.3 SEC (24.3-34.3); PROTHROMBIN TIME 13.7 SECS (9.2-11.1)
[2024-04-17 11:21] LABS: ALANINE AMINOTRANSFERASE 45 U/L (12-78); ALBUMIN 3.2 g/dL (3.4-5.0); ALKALINE PHOSPHATASE 241 U/L (46-116); ASPARTATE AMINOTRANSFERASE 83 U/L (15-37); BILIRUBIN,DIRECT 0.3 mg/dL (0.0-0.2); BILIRUBIN,TOTAL 0.6 mg/dL (0.2-1.0); CALCIUM, SERUM 9.1 mg/dL (8.5-10.1); CARBON DIOXIDE 32 mmol/L (21-32); CHLORIDE 106 mmol/L (98-107); CREATININE 4.4 mg/dL (0.6-1.3); GLUCOSE 78 mg/dL (74-106); POTASSIUM 5.2 mmol/L (3.5-5.1); SODIUM SERUM 142 mmol/L (136-145); TOTAL PROTEIN, SERUM 8.1 g/dL (6.4-8.2); UREA NITROGEN, BLOOD 20 mg/dL (7-18)
[2024-04-17] MEDS ORDERED: DILTIAZEM HCL 25 MG IV ONE (11:34)
[2024-04-17] MEDS: DILTIAZEM HCL 25 MG IV IV ONE ×2 (11:36→12:03)
[2024-04-17] MEDS ORDERED: DILTIAZEM HCL 50 MG IV ONE (12:02)
[2024-04-17 12:29] LABS: EOSINOPHILS % (MANUAL) 5 % (0-4); LYMPHOCYTES % (MANUAL) 29 % (16-48); MONOCYTES % (MANUAL) 14 % (0-11.0); NEUTROPHILS % (MANUAL) 52 (42-76); PLATELET ESTIMATE DECREASED
[2024-04-17 12:31] LABS: ANISOCYTOSIS 1+; HYPOCHROMASIA 1+
[2024-04-17] MEDS: DILTIAZEM HCL IV 125 MG in IV D5W 100 ML IV ONE (12:36)
[2024-04-17] MEDS ORDERED: METOPROLOL TARTRATE 50 MG TABLET PO SCH ×2 (13:30→21:00)
[2024-04-17] MEDS ORDERED: ONDANSETRON HCL/PF 4 MG/2 ML VIAL IV PRN (13:30)
[2024-04-17] MEDS ORDERED: DIGOXIN INJ 0.5 MG/2 ML AMPUL IV ONE (13:30)
[2024-04-17] MEDS ORDERED: ACETAMINOPHEN 325 MG TABLET PO PRN (13:30)
[2024-04-17] MEDS ORDERED: ALBU8.5H8 IH (13:54)
[2024-04-17] MEDS ORDERED: APIX2.5T PO (13:54)
[2024-04-17] MEDS ORDERED: FOLI0.8T23 PO (13:54)
[2024-04-17] MEDS ORDERED: ATOR40TA PO (13:54)
[2024-04-17] MEDS ORDERED: METO25TA4 PO (13:54)
[2024-04-17] MEDS ORDERED: hydrALAZINE HCL 50 MG TABLET PO SCH (17:00)
[2024-04-17] MEDS ORDERED: APIXABAN 5 MG TABLET PO SCH (17:00)
[2024-04-17] MEDS: METOPROLOL TARTRATE 50 MG TABLET PO SCH (17:52)
[2024-04-17] MEDS: DIGOXIN INJ 0.5 MG/2 ML AMPUL IV ONE (18:12)
[2024-04-17] MEDS: FUROSEMIDE 40 MG/4 ML VIAL IV SCH (18:14)
[2024-04-17] MEDS: hydrALAZINE HCL 50 MG TABLET PO SCH (18:15)
[2024-04-17] MEDS: APIXABAN 5 MG TABLET PO SCH (18:16)
[2024-04-17 20:00] VITALS: BP 147/109; TEMP 97.9; O2SAT 100
[2024-04-17 21:00] VITALS: BP 131/91; TEMP 97.9; O2SAT 100
[2024-04-18] VITALS: BP 125/90; TEMP 97.3; O2SAT 99
[2024-04-18] MEDS: HYDROCODONE/APAP 5/325MG TABLET PO PRN (01:01)
[2024-04-18 04:00] VITALS: BP 99/78; TEMP 97.5; O2SAT 95
[2024-04-18 08:00] VITALS: BP 121/90; TEMP 98; O2SAT 95
[2024-04-18] MEDS: FOLIC ACID 1 MG TABLET PO SCH (08:40)
[2024-04-18] MEDS: PANTOPRAZOLE 40 MG TABLET.DR PO SCH (08:40)
[2024-04-18] MEDS ORDERED: SPIRONOLACTONE 25 MG TABLET PO SCH (09:00)
[2024-04-18] MEDS ORDERED: FOLIC ACID 1 MG TABLET PO SCH (09:00)
[2024-04-18] MEDS ORDERED: PANTOPRAZOLE 40 MG TABLET.DR PO SCH (09:00)
[2024-04-18] MEDS ORDERED: POTASSIUM CHLORIDE 20 MEQ TAB.PRT.SR PO SCH (09:00)
[2024-04-18] MEDS ORDERED: FUROSEMIDE 40 MG TABLET PO SCH (09:00)
[2024-04-18 16:08] LABS: BASOPHILS # (AUTO) 0.1 K/uL (0.0-0.2); BASOPHILS % (AUTO) 2.4 % (0.0-2.0); EOSINOPHILS % (AUTO) 0.7 % (0.0-6.0); HEMATOCRIT 32 % (39-51); HEMOGLOBIN 10.1 g/dL (13.5-17.5); LYMPHOCYTES # (AUTO) 1.2 K/uL (0.8-4.8); LYMPHOCYTES % (AUTO) 24.5 % (20.0-44.0); MEAN CORPUSCULAR HEMOGLOBIN 30 PG (26.0-33.0); MEAN CORPUSCULAR HGB CONC 32 g/dl (31.0-36.0); MEAN CORPUSCULAR VOLUME 93 fL (80-96); MONOCYTES # (AUTO) 0.8 K/uL (0.1-1.30); MONOCYTES % (AUTO) 15.1 % (2.0-12.0); NEUTROPHILS # (AUTO) 2.9 K/uL (1.8-8.9); NEUTROPHILS % (AUTO) 57.3 % (43.0-81.0); PLATELET COUNT (AUTO) 106 K/uL (150-450); RED CELL DISTRIBUTION WIDTH 22.8 % (11.5-15.0); WHITE BLOOD COUNT (AUTO) 5.1 K/uL (4.3-11.0)
[2024-04-18 16:50] LABS: CALCIUM, SERUM 9.2 mg/dL (8.5-10.1); CARBON DIOXIDE 29 mmol/L (21-32); CHLORIDE 104 mmol/L (98-107); CREATININE 5.7 mg/dL (0.6-1.3); GLUCOSE 82 mg/dL (74-106); SODIUM SERUM 141 mmol/L (136-145); UREA NITROGEN, BLOOD 35 mg/dL (7-18)
[2024-04-18 17:21] LABS: POTASSIUM 6.1 mmol/L (3.5-5.1)
[2024-04-18] MEDS: SODIUM POLYSTYRENE SULFONATE 15 G/60 ML BOTTLE PO ONE (18:31)
[2024-04-18] MEDS: SODIUM ZIRCONIUM CYCLOSILICATE 10 GM POWD.PACK PO SCH (21:37)
[2024-04-18] MEDS: FUROSEMIDE 100 MG/10 ML VIAL IV ONE (21:37)
[2024-04-18 21:56] VITALS: BP 108/77; TEMP 98.1; O2SAT 92
[2024-04-19 04:42] VITALS: BP 118/90; TEMP 98.2; O2SAT 99
[2024-04-19 08:00] VITALS: BP 174/148; TEMP 98.1; O2SAT 95
[2024-04-19 12:18] LABS: ALBUMIN 2.9 g/dL (3.4-5.0); BILIRUBIN,TOTAL 0.6 mg/dL (0.2-1.0); CALCIUM, SERUM 8.8 mg/dL (8.5-10.1); CREATININE 6.2 mg/dL (0.6-1.3); MAGNESIUM 2.5 mg/dL (1.8-2.4); PHOSPHORUS 5.1 mg/dL (2.5-4.9); TOTAL PROTEIN, SERUM 7.5 g/dL (6.4-8.2)
[2024-04-19 12:25] LABS: POTASSIUM 6.5 mmol/L (3.5-5.1)
[2024-04-19 12:26] LABS: BASOPHILS # (AUTO) 0.1 K/uL (0.0-0.2); BASOPHILS % (AUTO) 2.8 % (0.0-2.0); EOSINOPHILS # (AUTO) 0.1 K/uL (0.0-0.7); EOSINOPHILS % (AUTO) 2.3 % (0.0-6.0); HEMATOCRIT 34 % (39-51); HEMOGLOBIN 10.7 g/dL (13.5-17.5); LYMPHOCYTES # (AUTO) 1.6 K/uL (0.8-4.8); LYMPHOCYTES % (AUTO) 31.3 % (20.0-44.0); MEAN CORPUSCULAR HEMOGLOBIN 30 PG (26.0-33.0); MEAN CORPUSCULAR HGB CONC 32 g/dl (31.0-36.0); MEAN CORPUSCULAR VOLUME 93 fL (80-96); MONOCYTES # (AUTO) 0.6 K/uL (0.1-1.30); MONOCYTES % (AUTO) 12.8 % (2.0-12.0); NEUTROPHILS # (AUTO) 2.5 K/uL (1.8-8.9); NEUTROPHILS % (AUTO) 50.8 % (43.0-81.0); PLATELET COUNT (AUTO) 140 K/uL (150-450); RED CELL DISTRIBUTION WIDTH 22.1 % (11.5-15.0)
[2024-04-19] MEDS: SODIUM POLYSTYRENE SULFONATE 15 G/60 ML BOTTLE PO ONE (13:32)
[2024-04-19 16:00] VITALS: BP 110/86; TEMP 98.2; O2SAT 94
[2024-04-19] MEDS ORDERED: ALBUTEROL FS 2.5 MG/3 ML VIAL.NEB NEB PRN (18:00)
[2024-04-19 20:00] VITALS: BP 155/111; TEMP 97.6; O2SAT 93
[2024-04-19] MEDS: ATORVASTATIN 40 MG TABLET PO SCH (22:41)
[2024-04-20] VITALS: BP 125/84; TEMP 97.8; O2SAT 94
[2024-04-20 08:10] LABS: PTH, INTACT 66 pg/mL (15-65)
[2024-04-20 08:51] LABS: CALCIUM, SERUM 8.4 mg/dL (8.5-10.1); POTASSIUM 4.2 mmol/L (3.5-5.1)
[2024-04-20] MEDS: VIT B CMPLX 3/FA/VIT C/BIOTIN 1 TAB TABLET PO SCH (08:57)
[2024-04-20] MEDS: APIXABAN 2.5 MG TABLET PO SCH (08:59)
[2024-04-20] MEDS ORDERED: METOPROLOL SUCCINATE 25 MG TAB.SR.24H PO SCH (09:00)
[2024-04-20] MEDS: METOPROLOL SUCCINATE 25 MG TAB.SR.24H PO SCH (09:00)
[2024-04-20 09:30] LABS: BASOPHILS # (AUTO) 0.1 K/uL (0.0-0.2); EOSINOPHILS # (AUTO) 0.2 K/uL (0.0-0.7); EOSINOPHILS % (AUTO) 3.4 % (0.0-6.0); HEMATOCRIT 32 % (39-51); HEMOGLOBIN 10.1 g/dL (13.5-17.5); LYMPHOCYTES % (AUTO) 16.3 % (20.0-44.0); MEAN CORPUSCULAR HEMOGLOBIN 30 PG (26.0-33.0); MEAN CORPUSCULAR HGB CONC 32 g/dl (31.0-36.0); MEAN CORPUSCULAR VOLUME 95 fL (80-96); NEUTROPHILS # (AUTO) 3.6 K/uL (1.8-8.9); NEUTROPHILS % (AUTO) 62.3 % (43.0-81.0); RED BLOOD CELL COUNT(AUTO) 3.38 MIL/uL (4.5-6.0); RED CELL DISTRIBUTION WIDTH 23.1 % (11.5-15.0); WHITE BLOOD COUNT (AUTO) 5.9 K/uL (4.3-11.0)
[2024-04-20 09:53] LABS: PLATELET COUNT (AUTO) 45 K/uL (150-450)
[2024-04-20 11:40] LABS: EOSINOPHILS % (MANUAL) 5 % (0-4); LYMPHOCYTES % (MANUAL) 20 % (16-48); MONOCYTES % (MANUAL) 11 % (0-11.0); PLATELET ESTIMATE DECREASED
[2024-04-20 11:42] LABS: ANISOCYTOSIS 1+; NEUTROPHILS % (MANUAL) 64 (42-76)
[2024-04-21 06:06] LABS: HEPATITIS B SURFACE AB Non Reactive (.)
[2024-04-21 09:07] LABS: *SPE A/G RATIO 0.8 (0.7-1.7); *SPE ALBUMIN 3.1 g/dL (2.9-4.4); *SPE ALPHA-1-GLOBULIN 0.3 g/dL (0.0-0.4); *SPE ALPHA-2-GLOBULIN 0.6 g/dL (0.4-1.0); *SPE GLOBULIN, TOTAL 4.1 g/dL (2.2-3.9); *SPE M-SPIKE Not Observed g/dL (Not Observed); *SPE PROTEIN TOTAL 7.2 g/dL (6.0-8.5); *SPEGAMMA GLOBULIN 2.2 g/dL (0.4-1.8)
== END 2024-04-20 10:39 | disposition left against medical advice (07) | DRG 280 ==
LOC: ER 10:08 → TELE 15:55 → TELE1 21:04 → TELE-TD 21:21 → MEDSG1 04-18 10:12 → TELE1 04-19 14:35
PROVIDERS: ADMIT Internal Medicine; ATTEND Internal Medicine
PROC: 5A1D70Z Performance of Urinary Filtration, Intermittent, Less than 6 Hours Per Day (ICD-10-PCS; principal; 2024-04-19)
DX: I13.2 Hypertensive heart and chronic kidney disease with heart failure and with stage 5 chronic kidney disease, or end stage renal disease (principal); I50.23 Acute on chronic systolic (congestive) heart failure; I21.A1 Myocardial infarction type 2; N17.9 Acute kidney failure, unspecified; N18.5 Chronic kidney disease, stage 5; I42.0 Dilated cardiomyopathy; I48.91 Unspecified atrial fibrillation; Z88.0 Allergy status to penicillin; Z79.01 Long term (current) use of anticoagulants; Z79.51 Long term (current) use of inhaled steroids; Z79.899 Other long term (current) drug therapy; Z91.148 Patient's other noncompliance with medication regimen for other reason; Z91.158 Patient's noncompliance with renal dialysis for other reason; D63.8 Anemia in other chronic diseases classified elsewhere; D69.6 Thrombocytopenia, unspecified; E87.5 Hyperkalemia; Z99.2 Dependence on renal dialysis; Z87.891 Personal history of nicotine dependence; F29 Unspecified psychosis not due to a substance or known physiological condition; R73.9 Hyperglycemia, unspecified
CPT/HCPCS: 36415; 71045-TC; 80048-TC; 80053-TC; 80076-TC; 82550-TC; 83735-TC; 83970; 84100-TC; 84155; 84165; 84439-TC; 84443-TC; 84484-TC; 85025-TC; 85730-TC; 86706; 87340; 93971-TC; 97116-TC; 97530-TC; G0378; J1160; J1940; J3490; J7060

== ENCOUNTER 2024-08-09 14:10 | Inpatient (IN) | payer BC, MEDICAID ==
[~2024-08-09] VITALS: Ht 165.1 cm; Wt 71.7 kg
[~2024-08-09 14:10] MED LIST changes: +ALBU8.5H8 IH; +APIX2.5T PO; -APIX5TAB PO; +ATOR40TA PO; -FOLI0.4T6 PO; +FOLI0.8T23 PO; -FURO40TA5 PO; -HYDR-4209 PO; -HYDR100T27 PO; +METO25TA4 PO; -METO50TA16 PO; -PANT40TA2 PO; -POTA20TA83 PO; -SPIR25TA6 PO
[2024-08-09 14:53] LABS: BASOPHILS # (AUTO) 0.1 K/uL (0.0-0.2); BASOPHILS % (AUTO) 2.3 % (0.0-2.0); EOSINOPHILS # (AUTO) 0.2 K/uL (0.0-0.7); EOSINOPHILS % (AUTO) 5.1 % (0.0-6.0); HEMATOCRIT 39 % (39-51); HEMOGLOBIN 12.4 g/dL (13.5-17.5); LYMPHOCYTES # (AUTO) 0.8 K/uL (0.8-4.8); MEAN CORPUSCULAR HEMOGLOBIN 31 PG (26.0-33.0); MEAN CORPUSCULAR HGB CONC 32 g/dl (31.0-36.0); MEAN CORPUSCULAR VOLUME 98 fL (80-96); MONOCYTES # (AUTO) 0.7 K/uL (0.1-1.30); NEUTROPHILS % (AUTO) 54.6 % (43.0-81.0); PLATELET COUNT (AUTO) 123 K/uL (150-450); RED BLOOD CELL COUNT(AUTO) 3.97 MIL/uL (4.5-6.0); WHITE BLOOD COUNT (AUTO) 3.7 K/uL (4.3-11.0)
[2024-08-09 15:00] LABS: ABG BASE EXCESS -6.3 mmol/L (-2.0-3.0); ABG OXYGEN SATURATION 37.4 % (94.0-98.0); ABG PCO2 63.9 mmHg (35.0-48.0); ABG PH 7.172 (7.350-7.450); ABG PO2 26.3 mmHg (83.0-108.0); ABG TOTAL HEMOGLOBIN 11.7 G/dL (13.5-17.5); COHb 2.2 % (0.5-1.5); MetHb 0.6 % (0.0-1.5); O2Hb 36.4 % (94.0-97.0); SITE, ABG VBG - N/A
[2024-08-09 15:05] LABS: SERUM AMMONIA 18 umol/L (11-32)
[2024-08-09 15:10] LABS: ALANINE AMINOTRANSFERASE 31 U/L (12-78); ALBUMIN 2.7 g/dL (3.4-5.0); ALKALINE PHOSPHATASE 210 U/L (46-116); ASPARTATE AMINOTRANSFERASE 41 U/L (15-37); BILIRUBIN,DIRECT 0.3 mg/dL (0.0-0.2); BILIRUBIN,TOTAL 0.6 mg/dL (0.2-1.0); CALCIUM, SERUM 8.4 mg/dL (8.5-10.1); CARBON DIOXIDE 24 mmol/L (21-32); CHLORIDE 107 mmol/L (98-107); GLUCOSE 132 mg/dL (74-106); POTASSIUM 5.2 mmol/L (3.5-5.1); SODIUM SERUM 139 mmol/L (136-145); TOTAL PROTEIN, SERUM 7.9 g/dL (6.4-8.2); UREA NITROGEN, BLOOD 48 mg/dL (7-18)
[2024-08-09 15:14] LABS: INR 1.4 (0.91-1.10); PARTIAL THROMBOPLASTIN TIME 36.4 SEC (24.3-34.3); PROTHROMBIN TIME 14.5 SECS (9.2-11.1)
[2024-08-09 15:19] LABS: ALCOHOL, BLOOD < 3 mg/dL (0-10); SALICYLATE 1.1 mg/dL (2.8-20.0)
[2024-08-09 15:20] LABS: CREATININE 8.4 mg/dL (0.6-1.3)
[2024-08-09] MEDS ORDERED: HALOPERIDOL LACTATE INJ 5 MG/ML VIAL ONE (15:30)
[2024-08-09] MEDS: HALOPERIDOL LACTATE INJ 5 MG/ML VIAL IM ONE (15:34)
[2024-08-09] MEDS ORDERED: LORAZEPAM INJ 2 MG/ML VIAL ONE (16:24)
[2024-08-09] MEDS: LORAZEPAM INJ 2 MG/ML VIAL IV ONE (16:26)
[2024-08-09] MEDS ORDERED: CALCIUM CHLORIDE 1,000 MG/10 ML DISP.SYRIN ONE (16:27)
[2024-08-09] MEDS ORDERED: SODIUM BICARBONATE SYR 100 MEQ in IV D5W 1,000 ML IV ONE (16:30)
[2024-08-09 16:34] LABS: ABG BASE EXCESS -6.3 mmol/L (-2.0-3.0); ABG OXYGEN SATURATION 99.6 % (94.0-98.0); ABG PCO2 54.3 mmHg (35.0-48.0); ABG PO2 382.7 mmHg (83.0-108.0); ABG TOTAL HEMOGLOBIN 12.4 G/dL (13.5-17.5); COHb 1.3 % (0.5-1.5); MetHb 0.4 % (0.0-1.5); O2Hb 97.9 % (94.0-97.0); SITE, ABG RIGHT RADIAL
[2024-08-09] MEDS: CALCIUM CHLORIDE 1,000 MG/10 ML DISP.SYRIN IV ONE (16:39)
[2024-08-09] MEDS ORDERED: SODIUM BICARBONATE SYR 50 MEQ/50 ML DISP.SYRIN ONE (16:40)
[2024-08-09] MEDS: SODIUM BICARBONATE SYR 50 MEQ/50 ML DISP.SYRIN IV ONE ×2 (16:45→16:46)
[2024-08-09] MEDS ORDERED: TRAZ-252 PO (17:20)
[2024-08-09] MEDS ORDERED: PANT40TA49 PO (17:20)
[2024-08-09] MEDS ORDERED: QUET25TA PO (17:20)
[2024-08-09] MEDS ORDERED: SEVE800T28 PO (17:20)
[2024-08-09] MEDS ORDERED: METO-357 PO (17:20)
[2024-08-09 17:24] LABS: LYMPHOCYTES % (MANUAL) 27 % (16-48); NEUTROPHILS % (MANUAL) 65 (42-76)
[2024-08-09 17:25] LABS: MONOCYTES % (MANUAL) 8 % (0-11.0); PLATELET ESTIMATE DECREASED
[2024-08-09] MEDS ORDERED: MIDAZOLAM HCL 5 MG/5ML VIAL ONE (17:58)
[2024-08-09] MEDS: MIDAZOLAM HCL 5 MG/5ML VIAL IV ONE (18:31)
[2024-08-09 20:00] VITALS: BP 110/77; TEMP 97.4; O2SAT 98
[2024-08-09] MEDS ORDERED: ONDANSETRON HCL/PF 4 MG/2 ML VIAL IV PRN (23:00)
[2024-08-09] MEDS ORDERED: HEPARIN SODIUM, PORCINE 5000 UNITS/1 ML VIAL SQ SCH (23:00)
[2024-08-10] VITALS (22 sets, daily range): BP systolic 91–153; BP diastolic 25–126; TEMP 96.8–98.4; O2SAT 90–100
[2024-08-10 05:48] LABS: ABG BASE EXCESS -2.8 mmol/L (-2.0-3.0); ABG OXYGEN SATURATION 93.8 % (94.0-98.0); ABG PCO2 56.3 mmHg (35.0-48.0); ABG PH 7.263 (7.350-7.450); ABG PO2 81.2 mmHg (83.0-108.0); COHb 0.9 % (0.5-1.5); MetHb 0.1 % (0.0-1.5); O2Hb 92.9 % (94.0-97.0); SITE, ABG ALINE
[2024-08-10 07:32] LABS: BASOPHILS # (AUTO) 0.1 K/uL (0.0-0.2); BASOPHILS % (AUTO) 1.5 % (0.0-2.0); EOSINOPHILS # (AUTO) 0.2 K/uL (0.0-0.7); EOSINOPHILS % (AUTO) 4.9 % (0.0-6.0); HEMATOCRIT 36 % (39-51); HEMOGLOBIN 11.7 g/dL (13.5-17.5); LYMPHOCYTES # (AUTO) 0.8 K/uL (0.8-4.8); LYMPHOCYTES % (AUTO) 19.4 % (20.0-44.0); MEAN CORPUSCULAR HEMOGLOBIN 31 PG (26.0-33.0); MEAN CORPUSCULAR HGB CONC 32 g/dl (31.0-36.0); MEAN CORPUSCULAR VOLUME 96 fL (80-96); MONOCYTES # (AUTO) 0.8 K/uL (0.1-1.30); MONOCYTES % (AUTO) 19.9 % (2.0-12.0); NEUTROPHILS # (AUTO) 2.1 K/uL (1.8-8.9); NEUTROPHILS % (AUTO) 54.3 % (43.0-81.0); PLATELET COUNT (AUTO) 74 K/uL (150-450); RED BLOOD CELL COUNT(AUTO) 3.77 MIL/uL (4.5-6.0); RED CELL DISTRIBUTION WIDTH 22.8 % (11.5-15.0); WHITE BLOOD COUNT (AUTO) 3.9 K/uL (4.3-11.0)
[2024-08-10 07:55] LABS: CALCIUM, SERUM 8.8 mg/dL (8.5-10.1); CREATININE 7.3 mg/dL (0.6-1.3); POTASSIUM 4.7 mmol/L (3.5-5.1)
[2024-08-10] MEDS: SEVELAMER CARBONATE 800 MG TABLET PO SCH (08:00)
[2024-08-10 08:13] LABS: THYROID STIMULATING HORMONE 1.31 uIU/mL (0.358-3.74)
[2024-08-10] MEDS: VIT B CMPLX 3/FA/VIT C/BIOTIN 1 TAB TABLET PO SCH (09:00)
[2024-08-10] MEDS: METOPROLOL SUCCINATE 50 MG TAB.SR.24H PO SCH (09:00)
[2024-08-10] MEDS: VITAMIN B COMP W-C 1 TAB TABLET PO SCH (09:00)
[2024-08-10] MEDS: PANTOPRAZOLE 40 MG/PACK PACK PO SCH (09:00)
[2024-08-10] MEDS ORDERED: APIXABAN 2.5 MG TABLET PO SCH ×2 (09:00)
[2024-08-10 09:10] LABS: ABG BASE EXCESS -3.8 mmol/L (-2.0-3.0); ABG OXYGEN SATURATION 95.8 % (94.0-98.0); ABG PCO2 56.3 mmHg (35.0-48.0); ABG PH 7.249 (7.350-7.450); ABG PO2 93.3 mmHg (83.0-108.0); ABG TOTAL HEMOGLOBIN 12.3 G/dL (13.5-17.5); COHb 0.9 % (0.5-1.5); MetHb 0.1 % (0.0-1.5); O2Hb 94.8 % (94.0-97.0); SITE, ABG RIGHT RADIAL
[2024-08-10] MEDS ORDERED: IPRATROPIUM NEB FS 0.5 MG/2.5 ML AMPUL.NEB NEB PRN (10:00)
[2024-08-10] MEDS ORDERED: PIPERACILLIN /TAZOBACTAM 2.25 G in IV D5W 50 ML IV SCH (10:00)
[2024-08-10] MEDS: CEFEPIME 1 GM in IV D5W 50 ML IV SCH (11:00)
[2024-08-10 11:59] LABS: EOSINOPHILS % (MANUAL) 5 % (0-4); LYMPHOCYTES % (MANUAL) 15 % (16-48); MONOCYTES % (MANUAL) 19 % (0-11.0); NEUTROPHILS % (MANUAL) 61 (42-76); PLATELET ESTIMATE DECREASED
[2024-08-10 12:00] LABS: ANISOCYTOSIS 2+
[2024-08-10 13:04] LABS: ABG BASE EXCESS -2.1 mmol/L (-2.0-3.0); ABG PCO2 55.7 mmHg (35.0-48.0); ABG PH 7.277 (7.350-7.450); ABG PO2 85.5 mmHg (83.0-108.0); ABG TOTAL HEMOGLOBIN 12.2 G/dL (13.5-17.5); MetHb 0.2 % (0.0-1.5); O2Hb 93.9 % (94.0-97.0)
[2024-08-10] MEDS: LEVALBUTEROL HCL NEB 1.25 MG/0.5 ML VIAL.NEB NEB SCH (15:30)
[2024-08-10] MEDS ORDERED: ALBUMIN 25% 25 GM in PREMIX 1 EA IV PRN (17:30)
[2024-08-10] MEDS: HALOPERIDOL LACTATE INJ 5 MG/ML VIAL IM PRN (19:55)
[2024-08-10] MEDS: ATORVASTATIN 40 MG TABLET PO SCH (21:10)
[2024-08-10] MEDS: QUETIAPINE FUMARATE 25 MG TABLET PO SCH (21:10)
[2024-08-11] VITALS (29 sets, daily range): BP systolic 99–158; BP diastolic 57–130; TEMP 98–98.9; O2SAT 90–99
[2024-08-11 04:42] LABS: BASOPHILS # (AUTO) 0.1 K/uL (0.0-0.2); BASOPHILS % (AUTO) 1.8 % (0.0-2.0); EOSINOPHILS # (AUTO) 0.1 K/uL (0.0-0.7); EOSINOPHILS % (AUTO) 2.6 % (0.0-6.0); HEMATOCRIT 34 % (39-51); HEMOGLOBIN 10.8 g/dL (13.5-17.5); LYMPHOCYTES # (AUTO) 0.6 K/uL (0.8-4.8); LYMPHOCYTES % (AUTO) 15.7 % (20.0-44.0); MEAN CORPUSCULAR HEMOGLOBIN 30 PG (26.0-33.0); MEAN CORPUSCULAR HGB CONC 32 g/dl (31.0-36.0); MEAN CORPUSCULAR VOLUME 95 fL (80-96); MONOCYTES # (AUTO) 0.8 K/uL (0.1-1.30); MONOCYTES % (AUTO) 21.2 % (2.0-12.0); NEUTROPHILS # (AUTO) 2.2 K/uL (1.8-8.9); NEUTROPHILS % (AUTO) 58.7 % (43.0-81.0); PLATELET COUNT (AUTO) 70 K/uL (150-450); RED BLOOD CELL COUNT(AUTO) 3.59 MIL/uL (4.5-6.0); RED CELL DISTRIBUTION WIDTH 22.1 % (11.5-15.0); WHITE BLOOD COUNT (AUTO) 3.7 K/uL (4.3-11.0)
[2024-08-11 05:14] LABS: CALCIUM, SERUM 7.9 mg/dL (8.5-10.1); CARBON DIOXIDE 28 mmol/L (21-32); CHLORIDE 104 mmol/L (98-107); CREATININE 5.6 mg/dL (0.6-1.3); GLUCOSE 114 mg/dL (74-106); POTASSIUM 4.2 mmol/L (3.5-5.1); SODIUM SERUM 138 mmol/L (136-145); UREA NITROGEN, BLOOD 28 mg/dL (7-18)
[2024-08-11 06:13] LABS: ANISOCYTOSIS 1+; EOSINOPHILS % (MANUAL) 5 % (0-4); LYMPHOCYTES % (MANUAL) 13 % (16-48); MONOCYTES % (MANUAL) 18 % (0-11.0); NEUTROPHILS % (MANUAL) 64 (42-76); PLATELET ESTIMATE DECREASED
[2024-08-11 08:24] LABS: ABG BASE EXCESS 0.3 mmol/L (-2.0-3.0); ABG OXYGEN SATURATION 96.2 % (94.0-98.0); ABG PCO2 54.2 mmHg (35.0-48.0); ABG PH 7.317 (7.350-7.450); ABG PO2 92.5 mmHg (83.0-108.0); COHb 0.2 % (0.5-1.5); MetHb 0.3 % (0.0-1.5); O2Hb 95.7 % (94.0-97.0); SITE, ABG RIGHT RADIAL
[2024-08-11] MEDS ORDERED: CEFEPIME 1 GM in IV D5W 50 ML IV PRN (11:00)
[2024-08-11] MEDS: CEFEPIME 1 GM in IV D5W 50 ML IV SCH (11:36)
[2024-08-12] VITALS (28 sets, daily range): BP systolic 107–194; BP diastolic 68–165; TEMP 96.6–98; O2SAT 89–100
[2024-08-12] MEDS: HYDROCODONE/APAP 5/325MG TABLET PO PRN (03:17)
[2024-08-12 04:46] LABS: BASOPHILS % (AUTO) 0.9 % (0.0-2.0); EOSINOPHILS # (AUTO) 0.1 K/uL (0.0-0.7); EOSINOPHILS % (AUTO) 3.5 % (0.0-6.0); HEMATOCRIT 36 % (39-51); HEMOGLOBIN 11.9 g/dL (13.5-17.5); LYMPHOCYTES # (AUTO) 0.8 K/uL (0.8-4.8); LYMPHOCYTES % (AUTO) 21.5 % (20.0-44.0); MEAN CORPUSCULAR HEMOGLOBIN 32 PG (26.0-33.0); MEAN CORPUSCULAR HGB CONC 33 g/dl (31.0-36.0); MEAN CORPUSCULAR VOLUME 96 fL (80-96); MONOCYTES % (AUTO) 25.6 % (2.0-12.0); NEUTROPHILS # (AUTO) 1.9 K/uL (1.8-8.9); NEUTROPHILS % (AUTO) 48.5 % (43.0-81.0); PLATELET COUNT (AUTO) 61 K/uL (150-450); RED BLOOD CELL COUNT(AUTO) 3.71 MIL/uL (4.5-6.0); RED CELL DISTRIBUTION WIDTH 21.9 % (11.5-15.0); WHITE BLOOD COUNT (AUTO) 3.9 K/uL (4.3-11.0)
[2024-08-12 05:28] LABS: CREATININE 6.3 mg/dL (0.6-1.3); POTASSIUM 4.5 mmol/L (3.5-5.1)
[2024-08-12 05:46] LABS: ANISOCYTOSIS 1+; BASOPHILS % (MANUAL) 0 % (0.0-2.0); EOSINOPHILS % (MANUAL) 4 % (0-4); LYMPHOCYTES % (MANUAL) 18 % (16-48); MONOCYTES % (MANUAL) 22 % (0-11.0); NEUTROPHILS % (MANUAL) 56 (42-76); PLATELET ESTIMATE DECREASED
[2024-08-12] MEDS: DIGOXIN INJ 0.5 MG/2 ML AMPUL IV ONE (09:20)
[2024-08-12] MEDS: METOPROLOL SUCCINATE 50 MG TAB.SR.24H PO SCH (09:20)
[2024-08-12] MEDS: ACETAMINOPHEN 325 MG TABLET PO PRN (09:24)
[2024-08-12] MEDS: LEVALBUTEROL HCL NEB 1.25 MG/0.5 ML VIAL.NEB NEB PRN (15:25)
[2024-08-13] VITALS (17 sets, daily range): BP systolic 93–149; BP diastolic 21–113; TEMP 97.5–98.6; O2SAT 94–100
[2024-08-13 04:31] LABS: CALCIUM, SERUM 7.7 mg/dL (8.5-10.1); CREATININE 7.3 mg/dL (0.6-1.3); POTASSIUM 4.8 mmol/L (3.5-5.1)
[2024-08-13 04:50] LABS: BASOPHILS % (AUTO) 0.7 % (0.0-2.0); EOSINOPHILS # (AUTO) 0.2 K/uL (0.0-0.7); EOSINOPHILS % (AUTO) 5.4 % (0.0-6.0); HEMATOCRIT 36 % (39-51); HEMOGLOBIN 11.8 g/dL (13.5-17.5); LYMPHOCYTES # (AUTO) 0.6 K/uL (0.8-4.8); MEAN CORPUSCULAR HEMOGLOBIN 31 PG (26.0-33.0); MEAN CORPUSCULAR HGB CONC 33 g/dl (31.0-36.0); MEAN CORPUSCULAR VOLUME 94 fL (80-96); MONOCYTES # (AUTO) 0.8 K/uL (0.1-1.30); MONOCYTES % (AUTO) 20.6 % (2.0-12.0); NEUTROPHILS # (AUTO) 2.2 K/uL (1.8-8.9); NEUTROPHILS % (AUTO) 57.3 % (43.0-81.0); RED BLOOD CELL COUNT(AUTO) 3.86 MIL/uL (4.5-6.0); RED CELL DISTRIBUTION WIDTH 21.5 % (11.5-15.0); WHITE BLOOD COUNT (AUTO) 3.8 K/uL (4.3-11.0)
[2024-08-13 05:01] LABS: PLATELET COUNT (AUTO) 28 K/uL (150-450)
[2024-08-13 05:06] LABS: APPEARANCE,SPUN,BODY FLUID CLEAR (CLEAR)
[2024-08-13 05:07] LABS: TOTAL VOLUME,BODY FLUID 1400 mL
[2024-08-13 05:08] LABS: WBC, BODY FLUID 282 /cu. mm. (0-200)
[2024-08-13 05:34] LABS: MONOCYTES,BODY FLUID 5 %
[2024-08-13 06:29] LABS: EOSINOPHILS % (MANUAL) 2 % (0-4); LYMPHOCYTES % (MANUAL) 17 % (16-48); MONOCYTES % (MANUAL) 18 % (0-11.0); NEUTROPHILS % (MANUAL) 63 (42-76)
[2024-08-13 06:36] LABS: PLATELET ESTIMATE DECREASED
[2024-08-13 06:37] LABS: ANISOCYTOSIS 1+
[2024-08-13] MEDS: HYDROCODONE/APAP 10/325MG TABLET PO PRN (07:14)
[2024-08-13] MEDS ORDERED: NEPRO VAN 237 ML CAN PO PRN (09:00)
[2024-08-13 11:48] LABS: BASOPHILS % (AUTO) 0.7 % (0.0-2.0); EOSINOPHILS # (AUTO) 0.2 K/uL (0.0-0.7); EOSINOPHILS % (AUTO) 4.8 % (0.0-6.0); HEMATOCRIT 37 % (39-51); HEMOGLOBIN 11.9 g/dL (13.5-17.5); LYMPHOCYTES # (AUTO) 0.7 K/uL (0.8-4.8); LYMPHOCYTES % (AUTO) 17.2 % (20.0-44.0); MEAN CORPUSCULAR HEMOGLOBIN 30 PG (26.0-33.0); MEAN CORPUSCULAR HGB CONC 32 g/dl (31.0-36.0); MEAN CORPUSCULAR VOLUME 94 fL (80-96); MONOCYTES # (AUTO) 0.9 K/uL (0.1-1.30); MONOCYTES % (AUTO) 23.8 % (2.0-12.0); NEUTROPHILS # (AUTO) 2.1 K/uL (1.8-8.9); NEUTROPHILS % (AUTO) 53.5 % (43.0-81.0); RED BLOOD CELL COUNT(AUTO) 3.97 MIL/uL (4.5-6.0); RED CELL DISTRIBUTION WIDTH 21.4 % (11.5-15.0)
[2024-08-13 11:55] LABS: PLATELET COUNT (AUTO) 28 K/uL (150-450)
[2024-08-13 17:04] LABS: EOSINOPHILS % (MANUAL) 10 % (0-4); LYMPHOCYTES % (MANUAL) 10 % (16-48); MONOCYTES % (MANUAL) 16 % (0-11.0); NEUTROPHILS % (MANUAL) 64 (42-76)
[2024-08-13 17:05] LABS: ANISOCYTOSIS 1+; PLATELET ESTIMATE DECREASED
[2024-08-14] MEDS: TRAZODONE 50 MG TABLET PO PRN (00:35)
[2024-08-14 07:36] LABS: BASOPHILS % (AUTO) 0.9 % (0.0-2.0); EOSINOPHILS # (AUTO) 0.2 K/uL (0.0-0.7); EOSINOPHILS % (AUTO) 4.9 % (0.0-6.0); HEMATOCRIT 40 % (39-51); LYMPHOCYTES # (AUTO) 0.8 K/uL (0.8-4.8); LYMPHOCYTES % (AUTO) 21.7 % (20.0-44.0); MEAN CORPUSCULAR HEMOGLOBIN 31 PG (26.0-33.0); MEAN CORPUSCULAR HGB CONC 33 g/dl (31.0-36.0); MEAN CORPUSCULAR VOLUME 95 fL (80-96); MONOCYTES # (AUTO) 0.7 K/uL (0.1-1.30); MONOCYTES % (AUTO) 18.1 % (2.0-12.0); NEUTROPHILS # (AUTO) 2.1 K/uL (1.8-8.9); NEUTROPHILS % (AUTO) 54.4 % (43.0-81.0); RED BLOOD CELL COUNT(AUTO) 4.23 MIL/uL (4.5-6.0); RED CELL DISTRIBUTION WIDTH 21.4 % (11.5-15.0); WHITE BLOOD COUNT (AUTO) 3.9 K/uL (4.3-11.0)
[2024-08-14 07:38] LABS: ALANINE AMINOTRANSFERASE 18 U/L (12-78); ALBUMIN 2.4 g/dL (3.4-5.0); ALKALINE PHOSPHATASE 208 U/L (46-116); ASPARTATE AMINOTRANSFERASE 37 U/L (15-37); BILIRUBIN,TOTAL 0.6 mg/dL (0.2-1.0); CALCIUM, SERUM 8.3 mg/dL (8.5-10.1); CARBON DIOXIDE 24 mmol/L (21-32); CHLORIDE 98 mmol/L (98-107); GLUCOSE 81 mg/dL (74-106); POTASSIUM 5.5 mmol/L (3.5-5.1); SODIUM SERUM 129 mmol/L (136-145); TOTAL PROTEIN, SERUM 7.4 g/dL (6.4-8.2); UREA NITROGEN, BLOOD 54 mg/dL (7-18)
[2024-08-14 07:55] LABS: PLATELET COUNT (AUTO) 25 K/uL (150-450)
[2024-08-14 07:56] LABS: CREATININE 7.7 mg/dL (0.6-1.3)
[2024-08-14 09:35] LABS: EOSINOPHILS % (MANUAL) 2 % (0-4); LYMPHOCYTES % (MANUAL) 18 % (16-48); MONOCYTES % (MANUAL) 3 % (0-11.0); NEUTROPHILS % (MANUAL) 77 (42-76); PLATELET ESTIMATE DECREASED
[2024-08-14 13:57] LABS: BASOPHILS # (AUTO) 0.1 K/uL (0.0-0.2); EOSINOPHILS # (AUTO) 0.3 K/uL (0.0-0.7); HEMATOCRIT 39 % (39-51); HEMOGLOBIN 12.9 g/dL (13.5-17.5); LYMPHOCYTES # (AUTO) 0.9 K/uL (0.8-4.8); MEAN CORPUSCULAR HEMOGLOBIN 31 PG (26.0-33.0); MEAN CORPUSCULAR HGB CONC 33 g/dl (31.0-36.0); MEAN CORPUSCULAR VOLUME 94 fL (80-96); MONOCYTES # (AUTO) 0.8 K/uL (0.1-1.30); MONOCYTES % (AUTO) 19.7 % (2.0-12.0); NEUTROPHILS % (AUTO) 49.3 % (43.0-81.0); RED BLOOD CELL COUNT(AUTO) 4.17 MIL/uL (4.5-6.0); WHITE BLOOD COUNT (AUTO) 4.1 K/uL (4.3-11.0)
[2024-08-14 14:00] LABS: PLATELET COUNT (AUTO) 38 K/uL (150-450)
[2024-08-14 14:18] LABS: EOSINOPHILS % (MANUAL) 3 % (0-4); LYMPHOCYTES % (MANUAL) 25 % (16-48); MONOCYTES % (MANUAL) 11 % (0-11.0); NEUTROPHILS % (MANUAL) 61 (42-76); PLATELET ESTIMATE DECREASED
[2024-08-14 16:00] VITALS: BP 146/81; TEMP 97.7; O2SAT 95
[2024-08-14] MEDS: CALAMINE 118 ML BOTTLE TP PRN (17:05)
[2024-08-14 20:00] VITALS: BP 111/93; TEMP 98.1; O2SAT 94
[2024-08-15] MEDS: ALPRAZOLAM 0.25 MG TABLET PO PRN (04:18)
[2024-08-15 08:00] VITALS: BP 110/81; TEMP 98.1; O2SAT 93
[2024-08-15 08:33] VITALS: BP 110/81
[2024-08-15] MEDS: OLANZAPINE 10 MG VIAL IM PRN (09:47)
[2024-08-15 16:27] LABS: BASOPHILS % (AUTO) 1.6 % (0.0-2.0); EOSINOPHILS # (AUTO) 0.2 K/uL (0.0-0.7); EOSINOPHILS % (AUTO) 6.9 % (0.0-6.0); HEMATOCRIT 37 % (39-51); HEMOGLOBIN 12.7 g/dL (13.5-17.5); LYMPHOCYTES # (AUTO) 0.6 K/uL (0.8-4.8); MEAN CORPUSCULAR HEMOGLOBIN 32 PG (26.0-33.0); MEAN CORPUSCULAR HGB CONC 34 g/dl (31.0-36.0); MEAN CORPUSCULAR VOLUME 93 fL (80-96); MONOCYTES # (AUTO) 0.5 K/uL (0.1-1.30); MONOCYTES % (AUTO) 16.3 % (2.0-12.0); NEUTROPHILS # (AUTO) 1.6 K/uL (1.8-8.9); NEUTROPHILS % (AUTO) 53.2 % (43.0-81.0); RETICULOCYTE COUNT 0.8 % (0.6-2.5); WHITE BLOOD COUNT (AUTO) 2.9 K/uL (4.3-11.0)
[2024-08-15 16:34] LABS: PLATELET COUNT (AUTO) 47 K/uL (150-450)
[2024-08-15 16:42] LABS: C-REACTIVE PROTEIN 2.99 mg/dL (0.0-0.30); RHEUMATOID FACTOR SCREEN NEGATIVE (NEGATIVE)
[2024-08-15 16:44] LABS: ALBUMIN 2.1 g/dL (3.4-5.0); BILIRUBIN,TOTAL 0.5 mg/dL (0.2-1.0); CREATININE 6.2 mg/dL (0.6-1.3); POTASSIUM 4.4 mmol/L (3.5-5.1); TOTAL PROTEIN, SERUM 6.5 g/dL (6.4-8.2)
[2024-08-15 16:46] LABS: INR 1.3 (0.91-1.10); PARTIAL THROMBOPLASTIN TIME 34.7 SEC (24.3-34.3); PROTHROMBIN TIME 13.5 SECS (9.2-11.1)
[2024-08-15 16:50] LABS: BAND % (MANUAL) 2 % (0.0-5.0); D-DIMER 5.14 mg/L(FEU (0.17-0.50); EOSINOPHILS % (MANUAL) 6 % (0-4); LYMPHOCYTES % (MANUAL) 21 % (16-48); MONOCYTES % (MANUAL) 2 % (0-11.0); NEUTROPHILS % (MANUAL) 69 (42-76)
[2024-08-15 16:52] LABS: PLATELET ESTIMATE DECREASED
[2024-08-16 08:00] VITALS: BP 102/76; TEMP 97.4; O2SAT 96
[2024-08-16] MEDS: AMOX/CLAVULANATE 875 MG TABLET PO SCH (09:40)
[2024-08-16 10:16] LABS: HEPATITIS B SURFACE AB (QUAL) Non Reactive (.); IMMUNOGLOBULIN A, SERUM 203 mg/dL (61-437); IMMUNOGLOBULIN G, SERUM 1901 mg/dL (603-1613); IMMUNOGLOBULIN M, SERUM 75 mg/dL (15-143)
[2024-08-16 11:11] LABS: FOLIC ACID > 20.0 ng/mL (>3.0)
[2024-08-16 12:07] LABS: *ANA ANTI-CENTROMERE B AB <0.2 AI (0.0-0.9); *ANA ANTI-DNA(DS) AB, QN <1 IU/mL (0-9); *ANA ANTI-JO-1 <0.2 AI (0.0-0.9); *ANA ANTICHROMATIN ANTIBODY <0.2 AI (0.0-0.9); *ANA RNP ANTIBODIES <0.2 AI (0.0-0.9); *ANA SJOGREN'S ANTI-SS-A <0.2 AI (0.0-0.9); *ANA SJOGREN'S ANTI-SS-B <0.2 AI (0.0-0.9); *ANAANTI-SCLERODERMA-70 AB <0.2 AI (0.0-0.9); *ANASMITH AB <0.2 AI (0.0-0.9)
[2024-08-16 16:00] VITALS: BP 137/89; TEMP 98.6; O2SAT 98
[2024-08-16 16:07] LABS: FREE KAPPA LT CHAINS SERUM 224.2 mg/L (3.3-19.4); FREE LAMBDA LT CHAIN SERUM 177.6 mg/L (5.7-26.3); KAPPA/LAMBDA RATIO SERUM 1.26 (0.26-1.65)
[2024-08-16 16:29] LABS: HIV-1 p24 ANTIGEN NON REACTIVE (NONREACTIVE); HIV-1/2 ANTIBODY NON REACTIVE (NONREACTIVE)
[2024-08-16 17:36] LABS: BASOPHILS % (AUTO) 1.8 % (0.0-2.0); EOSINOPHILS # (AUTO) 0.2 K/uL (0.0-0.7); HEMATOCRIT 34 % (39-51); HEMOGLOBIN 11.1 g/dL (13.5-17.5); LYMPHOCYTES # (AUTO) 0.5 K/uL (0.8-4.8); LYMPHOCYTES % (AUTO) 19.6 % (20.0-44.0); MEAN CORPUSCULAR HEMOGLOBIN 30 PG (26.0-33.0); MEAN CORPUSCULAR HGB CONC 32 g/dl (31.0-36.0); MEAN CORPUSCULAR VOLUME 92 fL (80-96); MONOCYTES # (AUTO) 0.4 K/uL (0.1-1.30); MONOCYTES % (AUTO) 16.3 % (2.0-12.0); NEUTROPHILS # (AUTO) 1.5 K/uL (1.8-8.9); NEUTROPHILS % (AUTO) 55.3 % (43.0-81.0); RED BLOOD CELL COUNT(AUTO) 3.71 MIL/uL (4.5-6.0); RED CELL DISTRIBUTION WIDTH 20.4 % (11.5-15.0); WHITE BLOOD COUNT (AUTO) 2.7 K/uL (4.3-11.0)
[2024-08-16 17:41] LABS: PLATELET COUNT (AUTO) 50 K/uL (150-450)
[2024-08-16 17:42] LABS: CALCIUM, SERUM 7.8 mg/dL (8.5-10.1); CREATININE 5.1 mg/dL (0.6-1.3); POTASSIUM 4.4 mmol/L (3.5-5.1)
[2024-08-16 18:30] LABS: EOSINOPHILS % (MANUAL) 7 % (0-4); LYMPHOCYTES % (MANUAL) 23 % (16-48); MONOCYTES % (MANUAL) 16 % (0-11.0); NEUTROPHILS % (MANUAL) 54 (42-76); PLATELET ESTIMATE DECREASED
[2024-08-16 18:31] LABS: ANISOCYTOSIS 1+
[2024-08-16 20:00] VITALS: BP 120/83; TEMP 97.5; O2SAT 96
[2024-08-17 08:00] VITALS: BP 140/93; TEMP 97.5; O2SAT 96
[2024-08-17 08:19] LABS: BASOPHILS # (AUTO) 0.1 K/uL (0.0-0.2); BASOPHILS % (AUTO) 1.7 % (0.0-2.0); EOSINOPHILS # (AUTO) 0.2 K/uL (0.0-0.7); EOSINOPHILS % (AUTO) 5.8 % (0.0-6.0); HEMATOCRIT 36 % (39-51); LYMPHOCYTES # (AUTO) 0.8 K/uL (0.8-4.8); LYMPHOCYTES % (AUTO) 25.1 % (20.0-44.0); MEAN CORPUSCULAR HEMOGLOBIN 31 PG (26.0-33.0); MEAN CORPUSCULAR HGB CONC 34 g/dl (31.0-36.0); MEAN CORPUSCULAR VOLUME 93 fL (80-96); MONOCYTES # (AUTO) 0.6 K/uL (0.1-1.30); MONOCYTES % (AUTO) 18.2 % (2.0-12.0); NEUTROPHILS # (AUTO) 1.6 K/uL (1.8-8.9); NEUTROPHILS % (AUTO) 49.2 % (43.0-81.0); PLATELET COUNT (AUTO) 58 K/uL (150-450); RED BLOOD CELL COUNT(AUTO) 3.86 MIL/uL (4.5-6.0); RED CELL DISTRIBUTION WIDTH 20.3 % (11.5-15.0); WHITE BLOOD COUNT (AUTO) 3.2 K/uL (4.3-11.0)
[2024-08-17 15:10] LABS: EOSINOPHILS % (MANUAL) 3 % (0-4); LYMPHOCYTES % (MANUAL) 11 % (16-48); MONOCYTES % (MANUAL) 5 % (0-11.0); NEUTROPHILS % (MANUAL) 31 (42-76); PLATELET ESTIMATE DECREASED
[2024-08-17 17:00] VITALS: BP 127/95; TEMP 97.5
[2024-08-17 20:00] VITALS: BP 123/93; TEMP 98.1; O2SAT 97
[2024-08-17 20:40] LABS: CALCIUM, SERUM 8.4 mg/dL (8.5-10.1); CREATININE 5.6 mg/dL (0.6-1.3); POTASSIUM 5.1 mmol/L (3.5-5.1)
[2024-08-17 20:46] LABS: BILIRUBIN,TOTAL 0.5 mg/dL (0.2-1.0); TOTAL PROTEIN, SERUM 6.5 g/dL (6.4-8.2)
[2024-08-18 07:11] LABS: ALBUMIN 2.3 g/dL (3.4-5.0); BILIRUBIN,TOTAL 0.7 mg/dL (0.2-1.0); CALCIUM, SERUM 8.9 mg/dL (8.5-10.1); CREATININE 5.9 mg/dL (0.6-1.3); POTASSIUM 5.8 mmol/L (3.5-5.1); TOTAL PROTEIN, SERUM 7.2 g/dL (6.4-8.2)
[2024-08-18 08:50] LABS: BASOPHILS # (AUTO) 0.1 K/uL (0.0-0.2); BASOPHILS % (AUTO) 1.7 % (0.0-2.0); EOSINOPHILS # (AUTO) 0.1 K/uL (0.0-0.7); EOSINOPHILS % (AUTO) 2.5 % (0.0-6.0); HEMATOCRIT 41 % (39-51); HEMOGLOBIN 13.2 g/dL (13.5-17.5); LYMPHOCYTES # (AUTO) 0.7 K/uL (0.8-4.8); LYMPHOCYTES % (AUTO) 14.3 % (20.0-44.0); MEAN CORPUSCULAR HEMOGLOBIN 30 PG (26.0-33.0); MEAN CORPUSCULAR HGB CONC 33 g/dl (31.0-36.0); MEAN CORPUSCULAR VOLUME 93 fL (80-96); MONOCYTES # (AUTO) 0.8 K/uL (0.1-1.30); MONOCYTES % (AUTO) 15.8 % (2.0-12.0); NEUTROPHILS # (AUTO) 3.3 K/uL (1.8-8.9); NEUTROPHILS % (AUTO) 65.7 % (43.0-81.0); PLATELET COUNT (AUTO) 85 K/uL (150-450); RED BLOOD CELL COUNT(AUTO) 4.35 MIL/uL (4.5-6.0); RED CELL DISTRIBUTION WIDTH 20.9 % (11.5-15.0); WHITE BLOOD COUNT (AUTO) 4.9 K/uL (4.3-11.0)
[2024-08-18 11:36] LABS: ABG BASE EXCESS -0.2 mmol/L (-2.0-3.0); ABG OXYGEN SATURATION 96.5 % (94.0-98.0); ABG PCO2 49.6 mmHg (35.0-48.0); ABG PO2 92.8 mmHg (83.0-108.0); ABG TOTAL HEMOGLOBIN 12.7 G/dL (13.5-17.5); MetHb 0.1 % (0.0-1.5); O2Hb 95.4 % (94.0-97.0); SITE, ABG RIGHT RADIAL
[2024-08-18 20:00] VITALS: BP 132/97; TEMP 97.9; O2SAT 100
[2024-08-18 21:01] LABS: ANISOCYTOSIS 1+; BAND % (MANUAL) 0 % (0.0-5.0); BASOPHILS % (MANUAL) 0 % (0.0-2.0); EOSINOPHILS % (MANUAL) 1 % (0-4); LYMPHOCYTES % (MANUAL) 17 % (16-48); MONOCYTES % (MANUAL) 13 % (0-11.0); NEUTROPHILS % (MANUAL) 69 (42-76); PLATELET ESTIMATE DECREASED
[2024-08-19 06:42] LABS: BASOPHILS # (AUTO) 0.1 K/uL (0.0-0.2); BASOPHILS % (AUTO) 1.7 % (0.0-2.0); EOSINOPHILS # (AUTO) 0.2 K/uL (0.0-0.7); EOSINOPHILS % (AUTO) 4.5 % (0.0-6.0); HEMATOCRIT 36 % (39-51); HEMOGLOBIN 11.6 g/dL (13.5-17.5); LYMPHOCYTES # (AUTO) 0.6 K/uL (0.8-4.8); LYMPHOCYTES % (AUTO) 16.9 % (20.0-44.0); MEAN CORPUSCULAR HEMOGLOBIN 30 PG (26.0-33.0); MEAN CORPUSCULAR HGB CONC 32 g/dl (31.0-36.0); MEAN CORPUSCULAR VOLUME 93 fL (80-96); MONOCYTES # (AUTO) 0.7 K/uL (0.1-1.30); MONOCYTES % (AUTO) 18.2 % (2.0-12.0); NEUTROPHILS # (AUTO) 2.2 K/uL (1.8-8.9); NEUTROPHILS % (AUTO) 58.7 % (43.0-81.0); PLATELET COUNT (AUTO) 99 K/uL (150-450); RED BLOOD CELL COUNT(AUTO) 3.87 MIL/uL (4.5-6.0); RED CELL DISTRIBUTION WIDTH 20.1 % (11.5-15.0); WHITE BLOOD COUNT (AUTO) 3.7 K/uL (4.3-11.0)
[2024-08-19 06:58] LABS: BILIRUBIN,TOTAL 0.5 mg/dL (0.2-1.0); CALCIUM, SERUM 8.4 mg/dL (8.5-10.1); CREATININE 5.3 mg/dL (0.6-1.3); MAGNESIUM 2.3 mg/dL (1.8-2.4); PHOSPHORUS 3.1 mg/dL (2.5-4.9); POTASSIUM 4.4 mmol/L (3.5-5.1); TOTAL PROTEIN, SERUM 6.2 g/dL (6.4-8.2)
[2024-08-19 08:00] VITALS: BP 125/77; TEMP 97.9; O2SAT 96
[2024-08-19] MEDS ORDERED: APIX2.5T PO (08:13)
[2024-08-19 16:00] VITALS: BP 119/73; TEMP 97.9; O2SAT 97
[2024-08-19 16:20] VITALS: BP 119/73
[2024-08-20 10:07] LABS: *SPE A/G RATIO 0.7 (0.7-1.7); *SPE ALBUMIN 2.6 g/dL (2.9-4.4); *SPE ALPHA-1-GLOBULIN 0.4 g/dL (0.0-0.4); *SPE ALPHA-2-GLOBULIN 0.5 g/dL (0.4-1.0); *SPE BETA GLOBULIN 0.8 g/dL (0.7-1.3); *SPE GLOBULIN, TOTAL 3.5 g/dL (2.2-3.9); *SPE M-SPIKE Not Observed g/dL (Not Observed); *SPE PROTEIN TOTAL 6.1 g/dL (6.0-8.5); *SPEGAMMA GLOBULIN 1.8 g/dL (0.4-1.8)
[2024-08-20 15:07] LABS: *HCV QUANTITATION 1210000 IU/mL (.); *HCV log10 6.083 (.)
== END 2024-08-19 19:10 | disposition home health service (06) | DRG 280 ==
LOC: ER 14:13 → TELE-TD 20:27 → ICU 08-10 09:40 → MED 08-13 13:45
PROVIDERS: ADMIT Internal Medicine; ATTEND Internal Medicine
PROC: 5A1D70Z Performance of Urinary Filtration, Intermittent, Less than 6 Hours Per Day (ICD-10-PCS; principal; 2024-08-09)
PROC: 5A09357 Assistance with Respiratory Ventilation, Less than 24 Consecutive Hours, Continuous Positive Airway Pressure (ICD-10-PCS; 2024-08-09)
PROC: 0W9B3ZX Drainage of Left Pleural Cavity, Percutaneous Approach, Diagnostic (ICD-10-PCS; 2024-08-14)
PROC: 0W9B3ZZ Drainage of Left Pleural Cavity, Percutaneous Approach (ICD-10-PCS; 2024-08-17)
DX: I13.2 Hypertensive heart and chronic kidney disease with heart failure and with stage 5 chronic kidney disease, or end stage renal disease (principal); I50.23 Acute on chronic systolic (congestive) heart failure; I21.4 Non-ST elevation (NSTEMI) myocardial infarction; N18.6 End stage renal disease; J96.21 Acute and chronic respiratory failure with hypoxia; J96.22 Acute and chronic respiratory failure with hypercapnia; J18.9 Pneumonia, unspecified organism; J44.1 Chronic obstructive pulmonary disease with (acute) exacerbation; I48.20 Chronic atrial fibrillation, unspecified; D61.818 Other pancytopenia; J44.0 Chronic obstructive pulmonary disease with (acute) lower respiratory infection; D68.9 Coagulation defect, unspecified; F03.918 Unspecified dementia, unspecified severity, with other behavioral disturbance; E87.29 Other acidosis; E87.1 Hypo-osmolality and hyponatremia; N25.81 Secondary hyperparathyroidism of renal origin; J98.11 Atelectasis; G93.40 Encephalopathy, unspecified; I42.0 Dilated cardiomyopathy; Z20.822 Contact with and (suspected) exposure to COVID-19; Z88.0 Allergy status to penicillin; Z99.2 Dependence on renal dialysis; Z79.01 Long term (current) use of anticoagulants; Z79.899 Other long term (current) drug therapy; D63.1 Anemia in chronic kidney disease; D72.821 Monocytosis (symptomatic); E11.22 Type 2 diabetes mellitus with diabetic chronic kidney disease; Z53.20 Procedure and treatment not carried out because of patient's decision for unspecified reasons; F29 Unspecified psychosis not due to a substance or known physiological condition; M89.8X9 Other specified disorders of bone, unspecified site; E78.5 Hyperlipidemia, unspecified; Z91.199 Patient's noncompliance with other medical treatment and regimen due to unspecified reason; Z87.891 Personal history of nicotine dependence; Z86.73 Personal history of transient ischemic attack (TIA), and cerebral infarction without residual deficits; I25.2 Old myocardial infarction; E87.5 Hyperkalemia; J43.9 Emphysema, unspecified; F39 Unspecified mood [affective] disorder; F43.21 Adjustment disorder with depressed mood
CPT/HCPCS: 36415; 36600; 70450-TC; 71045-TC; 73560-TC; 76700-TC; 80048-TC; 80053-TC; 80061-TC; 80076-TC; 82140-TC; 82607-TC; 82728-TC; 82784; 82803-TC; 82962-TC; 83540-TC; 83735-TC; 84100-TC; 84155; 84165; 84439-TC; 84443-TC; 84484-TC; 85025-TC; 85045-TC; 85396; 85730-TC; 86022; 86140-TC; 86225; 86235; 86334; 86431-TC; 86706; 86803; 87040-TC; 87081-TC; 87102-TC; 87340; 87522; 87806; 88108-TC; 88305-TC; 88312-TC; 89051-TC; 90935-TC; 92526; 92611-TC; 93307-TC; 94762-TC; 94799-TC; 97110-TC; 97116-TC; 97530-TC; A4216; A4223; G0378; G0480; J0692; J1160; J1630; J2060; J2250; J3490; J7030; J7050; J7060; J7070; P9047

== ENCOUNTER 2024-10-24 17:13 | Emergency (ER) | payer BC ==
[~2024-10-24] VITALS: Ht 175.3 cm; Wt 64.4 kg
[~2024-10-24 17:13] MED LIST changes: -ALBU8.5H8 IH; +METO-357 PO; -METO25TA4 PO; +PANT40TA49 PO; +QUET25TA PO; +SEVE800T28 PO; +TRAZ-252 PO
[2024-10-24] MEDS: VANCOMYCIN 1 GM in IV D5W 250 ML IV ONE (18:00)
[2024-10-24 18:36] LABS: BASOPHILS # (AUTO) 0.1 K/uL (0.0-0.2); BASOPHILS % (AUTO) 1.4 % (0.0-2.0); EOSINOPHILS # (AUTO) 0.2 K/uL (0.0-0.7); EOSINOPHILS % (AUTO) 3.7 % (0.0-6.0); HEMATOCRIT 32 % (39-51); HEMOGLOBIN 10.2 g/dL (13.5-17.5); LYMPHOCYTES # (AUTO) 0.9 K/uL (0.8-4.8); LYMPHOCYTES % (AUTO) 19.5 % (20.0-44.0); MEAN CORPUSCULAR HEMOGLOBIN 32 PG (26.0-33.0); MEAN CORPUSCULAR HGB CONC 31 g/dl (31.0-36.0); MEAN CORPUSCULAR VOLUME 101 fL (80-96); MONOCYTES # (AUTO) 0.8 K/uL (0.1-1.30); MONOCYTES % (AUTO) 18.5 % (2.0-12.0); NEUTROPHILS # (AUTO) 2.5 K/uL (1.8-8.9); NEUTROPHILS % (AUTO) 56.9 % (43.0-81.0); PLATELET COUNT (AUTO) 105 K/uL (150-450); RED BLOOD CELL COUNT(AUTO) 3.21 MIL/uL (4.5-6.0); RED CELL DISTRIBUTION WIDTH 21.5 % (11.5-15.0); WHITE BLOOD COUNT (AUTO) 4.4 K/uL (4.3-11.0)
[2024-10-24] MEDS ORDERED: MORPHINE SULFATE INJ 4 MG/ML DISP.SYRIN ONE (18:40)
[2024-10-24] MEDS ORDERED: ONDANSETRON HCL/PF 4 MG/2 ML VIAL ONE (18:40)
[2024-10-24] MEDS: ONDANSETRON HCL/PF 4 MG/2 ML VIAL IVP ONE (18:41)
[2024-10-24] MEDS: MORPHINE SULFATE INJ 2 MG/ML DISP.SYRIN IV ONE (18:41)
[2024-10-24 18:56] LABS: INR 1.37 (0.91-1.10); PARTIAL THROMBOPLASTIN TIME 38.2 SEC (24.3-34.3); PROTHROMBIN TIME 14.2 SECS (9.2-11.1)
[2024-10-24 19:13] LABS: ALANINE AMINOTRANSFERASE 37 U/L (12-78); ALBUMIN 2.9 g/dL (3.4-5.0); ALKALINE PHOSPHATASE 255 U/L (46-116); BILIRUBIN,DIRECT 0.3 mg/dL (0.0-0.2); BILIRUBIN,TOTAL 0.7 mg/dL (0.2-1.0); CALCIUM, SERUM 8.2 mg/dL (8.5-10.1); CARBON DIOXIDE 22 mmol/L (21-32); CHLORIDE 105 mmol/L (98-107); CREATININE 4.5 mg/dL (0.6-1.3); GLUCOSE 88 mg/dL (74-106); POTASSIUM 3.5 mmol/L (3.5-5.1); SODIUM SERUM 138 mmol/L (136-145); TOTAL PROTEIN, SERUM 8.4 g/dL (6.4-8.2); UREA NITROGEN, BLOOD 29 mg/dL (7-18)
[2024-10-24] MEDS ORDERED: VANCOMYCIN 1 GM /D5W 250 ML PB IV ONE (19:17)
[2024-10-24 19:39] LABS: ASPARTATE AMINOTRANSFERASE 54 U/L (15-37)
[2024-10-24 19:47] LABS: LACTIC ACID 1.2 mmol/L (0.4-2.0)
[2024-10-24] MEDS ORDERED: CEFEPIME 1 GM VIAL ONE (20:32)
[2024-10-24] MEDS: CEFEPIME 1 GM in IV D5W 50 ML IV ONE (20:33)
[2024-10-24] MEDS ORDERED: MAGNESIUM HYDROXIDE 30 ML UDC PO PRN (21:30)
[2024-10-24] MEDS ORDERED: ACETAMINOPHEN 325 MG TABLET PO PRN (21:30)
[2024-10-24] MEDS ORDERED: MAG HYDROX/AL HYDROX/SIMETH 30 ML UDC PO PRN (21:30)
[2024-10-24] MEDS ORDERED: ONDANSETRON HCL/PF 4 MG/2 ML VIAL IVP PRN (21:30)
[2024-10-25 01:00] VITALS: BP 130/78; TEMP 97.7; O2SAT 99
[2024-10-25] MEDS ORDERED: CEFEPIME 1 GM in IV D5W 50 ML IV SCH (06:00)
[2024-10-25] MEDS ORDERED: PANTOPRAZOLE 40 MG TABLET.DR PO SCH (07:30)
== END 2024-10-25 03:38 | disposition short-term general hospital (02) ==
LOC: ER 17:26 → UNDOADMIN 20:54 → TELE 20:54 → UNDODISIN 10-25 03:30 → ER 10-25 03:38 → TELE 10-25 05:27 → CSC1 10-25 05:27 → TELE 10-25 09:34 → CSC1 10-25 09:34
DX: L03.116 Cellulitis of left lower limb (principal); L03.115 Cellulitis of right lower limb; I12.0 Hypertensive chronic kidney disease with stage 5 chronic kidney disease or end stage renal disease; N18.6 End stage renal disease; R07.9 Chest pain, unspecified; Z88.0 Allergy status to penicillin
CPT/HCPCS: 99285; 96365; 96375; 71045; 96367; 93005; 84145; 85025; 80048; 87040 ×2; 83605; 80076; 36415; 85730; 82962; J2270; J3370 ×2; J2405; J7060 ×2; J0692 ×2; G0378